=== PATIENT | male | born 1970 | race Caucasian/White ===

== ENCOUNTER 2021-09-01 19:29 | Inpatient (IN) | payer BC, SELFPAY ==
[2021-09-01 19:37] VITALS: BP 193/115; PULSE 68; RESP 16; TEMP 36.7; O2SAT 98
--- NOTE | 2021-09-01 19:42 | CTR_ITS ---
PROCEDURE INFORMATION: Exam: CT Head Without Contrast Exam date and time: 09/01/2021 7:42 PM Age: 51 years old Clinical indication: Pain; Headache not specified; Additional info: Headache blurry vision TECHNIQUE: Imaging protocol: Computed tomography of the head without contrast. Radiation optimization: All CT scans at this facility use at least one of these dose optimization techniques: automated exposure control; mA and/or kV adjustment per patient size (includes targeted exams where dose is matched to clinical indication); or iterative reconstruction. COMPARISON: [place] [facility] [place] [id number] 06/20/2017 9:09 AM RADIATION DOSE METRICS: Total DLP (mGy-cm): 964.37 FINDINGS: Brain: Unremarkable. No hemorrhage. No significant white matter disease. No edema. Cerebral ventricles: No ventriculomegaly. Paranasal sinuses: 8 mm retention cyst left maxillary sinus. Mastoid air cells: Unremarkable as visualized. No mastoid effusion. Bones/joints: Unremarkable. No acute fracture. Soft tissues: Unremarkable. CT/CT head wo con* [id number] IMPRESSION: 1. No acute intracranial abnormality demonstrated. 2. There is no interval change from the prior examination.
--- NOTE | 2021-09-01 19:44 | PC.NURSE ---
states right eye pain with throbbing, states started yesterday and states breathing and movement makes the pain worse. has history of migrains as a child but not as an adult. states decreased vision in right eye but does not appear different with eye open or close. deneis injury or trauma. states started yesterday around 0700 and did not feel right. reports vomiting yesterday and had been taking NSAIDS and tylenol with out relief of pain. PERRL equal in both eyes. states can not tell light or dark even with flashlight in eyes.
--- NOTE | 2021-09-01 20:10 | XRR_ITS ---
PROCEDURE INFORMATION: Exam: XR Chest Exam date and time: 09/01/2021 8:10 PM Age: 51 years old Clinical indication: Shortness of breath; Additional info: SOB TECHNIQUE: Imaging protocol: XR of the chest. Views: 1 view. COMPARISON: No relevant prior studies available. FINDINGS: Lungs: No consolidation. Pleural spaces: No pleural effusion. No pneumothorax. Heart/Mediastinum: No cardiomegaly. Bones/joints: Old healed right clavicle fracture. Degenerative changes of the thoracic spine are noted. XR/XR chest 1V portable [id number] IMPRESSION: No acute abnormality demonstrated.
--- NOTE | 2021-09-01 20:11 | ECG_ITS ---
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 Measurements Intervals [place] Rate: 78 P: 57 NC: 133 QRS: -44 QRSD: 102 T: 47 QT: 362 QTc: 413 Interpretive Statements SINUS RHYTHM POSSIBLE LEFT ATRIAL ENLARGEMENT [-0.1mV P-WAVE IN V1/V2] LEFT AXIS DEVIATION [QRS AXIS < -30] No previous ECG available for comparison Electronically Signed On 09-03-2021 15:39:25 SOCIAL WORK INSTRUCTOR by Rohini Herrmann M.D. [email or web address]/[id number]
--- NOTE | 2021-09-01 20:19 | W.ED.HA ---
Documented by User: Murphy Keith Washington, 09/02/21 03:21 HPI - Headache General: Chief Complaint: Headache Stated Complaint: N/V, weakness Time Seen by Provider: 09/01/21 19:42 History of Present Illness: HPI Narrative: 51-year-old male with history of right eye pain, headache, and vomiting since yesterday. He notes onset of eye pain with blurry vision yesterday. Worsened, but then improved last night. This afternoon it started again, and has been quite debilitating. He notes it is a stabbing pain behind his eye and in his right adventism. He notes spotty vision. He is not overly light sensitive. He has vomited due to the pain. He said the pain is making him short of breath as well. He is quite hypertensive on arrival. He has had intermittent numbness and tingling to both upper and lower extremities bilaterally. No weakness. No head trauma MD elicited complaint: headache Pertinent past history: other Onset (ago): hour(s) Onset description: suddenly Location: right and retro-orbital Quality & Timing: throbbing and other (Staff) Exacerbating factors: none Relieving factors: nothing Context: occurred at rest Associated symptoms: Reports diaphoresis, eye pain, loss of vision (Blurry vision) and short of breath; Deny chest pain, confusion, cough, eye redness, fever(s), lightheadedness, photophobia or sound sensitivity Review of Systems Const: Reports: diaphoresis; Denies: fever(s) Card: Denies: chest pain or lightheadedness Neuro: Denies: confusion Physical Exam Const: COMMON NORMALS: patient oriented x3 and alert GENERAL APPEARANCE: not comfortable HENMT: COMMON NORMALS: normocephalic HEAD & SCALP: normocephalic Eye: COMMON NORMALS: Equal, round and reactive pupils present, EOMs intact bilaterally and conjunctivae normal CONJUNCTIVA: Yes conjunctivae normal PUPIL: Yes Equal, round and reactive pupils present DIRECT OPHTHALMOSCOPY: No photophobia Chest: COMMONS NORMALS: normal inspection of the chest Resp: COMMON NORMALS: clear to auscultation bilaterally EFFORT & INSPECTION: Yes tachypneic AUSCULTATION: clear to auscultation bilaterally Cardio: COMMON NORMALS: regular rate and regular rhythm RATE: regular rate RHYTHM: regular rhythm GI: COMMON NORMALS: Normal to inspection, nondistended, normoactive bowel sounds present Neuro: COMMON NORMALS: patient oriented x3 SENSORIUM/ORIENTATION: Yes alert Course Consultations: Consultation #1: ramona Vital Signs: Vital signs: Vital Signs Temperature 98.0 F 09/01/21 19:37 Pulse Rate 68 09/01/21 19:37 Respiratory Rate 18 09/01/21 21:58 Blood Pressure 193/115 09/01/21 19:37 Pulse Oximetry 98 09/01/21 19:37 MDM - Headache MDM Narrative: Medical decision making narrative: 51-year-old male with significant retrobulbar pain on the right and a change in vision. Its not totally gone, but very blurry. He is not photophobic or light sensitive. Intraocular pressures are checked at bedside. His IOP is 14. Rules out acute angle-closure glaucoma. Head CT was negative. He was treated initially for cluster headache with oxygen, pain medication, Toradol, Reglan, Zofran, and Depacon. Initially he seemed to not improve, but then improved significantly to the point he is nearly asymptomatic. Prior to becoming asymptomatic, MRI was ordered to rule out optic neuritis versus cavernous sinus clot essentially. Interestingly it shows acute lacunar infarcts in the right occipital and parietal lobes. He has had symptoms since yesterday, which makes TPA not an option. His symptoms are improved which is good. CTA was suggested to rule out an unstable clot and a carotid given his right sided stroke findings. CTA of the head and neck are clean. He will be observed for echocardiogram, and continued work-up. He was quite hypertensive on his arrival. His blood pressure has been much improved after antihypertensives here. Hospitalist agrees to observation. He is evaluated in the ER. Lab Data: Labs: Lab Results 09/01/21 09/01/21 09/01/21 20:45 20:45 20:45 WBC 8.2 10^3/uL 10^3/ uL (4.0-10.0) RBC 4.97 10^6/uL 10^6 /uL (4.1-5.3) Hgb 15.4 g/dL g/dL (11.7-16.6) Hct 43.5 % % (42.0-52.0) MCV 87.5 fl fl (80-94) MCH 31.0 pg pg (28.0-34.0) MCHC 35.4 g/dL g/dL (30.0-36.0) RDW 12.9 % % (12.1-15.1) Plt Count 161 10^3/cmm 10^3 /cmm (130-400) MPV 11.6 fL H fL (7.4-10.4) Neut % (Auto) 74.7 % % Lymph % (Auto) 17.5 % % [place] % (Auto) 7.0 % % Eos % (Auto) 0.1 % % Baso % (Auto) 0.2 % % Neut # (Auto) 6.11 10^3/uL 10^3 /uL (1.8-7.7) Lymph # (Auto) 1.4 10^3/uL 10^3/ uL (0.8-4.8) [place] # (Auto) 0.6 10^3/uL 10^3/ uL (0.2-0.9) Eos # (Auto) 0.0 10^3/uL 10^3/ uL (0.0-0.8) Baso # (Auto) 0.0 10^3/uL 10^3/ uL (0.0-0.1) Nucleated RBC % (a uto) 0 % % Nucleated RBCs # 0.0 /100WBC /100W BC Sodium 140 mmol/L mmol/L (136-145) Potassium 4.7 mmol/L mmol/L (3.5-5.1) Chloride 104 mmol/L mmol/L (98-107) Carbon Dioxide 22 mmol/L mmol/L (22-29) Anion Gap 18.7 (5-19) BUN 20 mg/dL mg/dL (6-20) Creatinine 1.0 mg/dL mg/dL (0.7-1.2) GFR Calculation 79.1 mL/min L mL/ min (90-130) Glucose 126 mg/dL H mg/dL (65-115) Calculated Osmolal ity 294 mOsm/kg mOsm/ kg (285-295) Calcium 8.9 mg/dL mg/dL (8.5-10.5) Total Bilirubin 0.4 mg/dL mg/dL (0.15-1.2) AST 27 U/L U/L (0-40) ALT 38 U/L U/L (0-41) Alkaline Phosphata se 97 IU/L IU/L (40-130) Creatine Kinase 120 U/L U/L (39-308) Troponin T Baselin e 7 ng/L ng/L (0-15) Troponin T 120 Min [place] Delta Troponin T Troponin T Hi Sens 6Hr Troponin T Hi Sens 6Hr Delta C-Reactive Protein 4.6 mg/L mg/L (0.0-4.9) Total Protein 7.2 g/dL g/dL (6.6-8.7) Albumin 4.6 g/dL g/dL (3.5-5.2) Globulin 2.6 g/dL g/dL (1.3-4.6) 09/01/21 09/02/21 22:20 02:17 WBC RBC Hgb Hct MCV MCH MCHC RDW Plt Count MPV Neut % (Auto) Lymph % (Auto) [place] % (Auto) Eos % (Auto) Baso % (Auto) Neut # (Auto) Lymph # (Auto) [place] # (Auto) Eos # (Auto) Baso # (Auto) Nucleated RBC % (a uto) Nucleated RBCs # Sodium Potassium Chloride Carbon Dioxide Anion Gap BUN Creatinine GFR Calculation Glucose Calculated Osmolal ity Calcium Total Bilirubin AST ALT Alkaline Phosphata se Creatine Kinase Troponin T Baselin e Troponin T 120 Min [place] 6.31 ng/L ng/L (0-15) Delta Troponin T -0.69 ABS# L ABS# (0-10) Troponin T Hi Sens 6Hr 7.81 ng/L ng/L (0-15) Troponin T Hi Sens 6Hr Delta 0.81 ng/L ng/L (0-12) C-Reactive Protein Total Protein Albumin Globulin Discharge Plan Discharge Patient Disposition: Placed in Observation Clinical Impression: Acute cerebrovascular accident (CVA) Coding Level of Care Code ED Salt Operator for Chg Fwd Exam Detailed Documented by User: Cori Nur MD 09/02/21 01:36 HPI - Headache General: Chief Complaint: Headache Stated Complaint: N/V, weakness Time Seen by Provider: 09/01/21 19:42 Course Vital Signs: Vital signs: Vital Signs Temperature 98.0 F 09/01/21 19:37 Pulse Rate 68 09/01/21 19:37 Respiratory Rate 18 09/01/21 21:58 Blood Pressure 193/115 09/01/21 19:37 Pulse Oximetry 98 09/01/21 19:37 MDM - Headache Lab Data: Labs: Lab Results 09/01/21 09/01/21 09/01/21 20:45 20:45 20:45 WBC 8.2 10^3/uL 10^3/ uL (4.0-10.0) RBC 4.97 10^6/uL 10^6 /uL (4.1-5.3) Hgb 15.4 g/dL g/dL (11.7-16.6) Hct 43.5 % % (42.0-52.0) MCV 87.5 fl fl (80-94) MCH 31.0 pg pg (28.0-34.0) MCHC 35.4 g/dL g/dL (30.0-36.0) RDW 12.9 % % (12.1-15.1) Plt Count 161 10^3/cmm 10^3 /cmm (130-400) MPV 11.6 fL H fL (7.4-10.4) Neut % (Auto) 74.7 % % Lymph % (Auto) 17.5 % % [place] % (Auto) 7.0 % % Eos % (Auto) 0.1 % % Baso % (Auto) 0.2 % % Neut # (Auto) 6.11 10^3/uL 10^3 /uL (1.8-7.7) Lymph # (Auto) 1.4 10^3/uL 10^3/ uL (0.8-4.8) [place] # (Auto) 0.6 10^3/uL 10^3/ uL (0.2-0.9) Eos # (Auto) 0.0 10^3/uL 10^3/ uL (0.0-0.8) Baso # (Auto) 0.0 10^3/uL 10^3/ uL (0.0-0.1) Nucleated RBC % (a uto) 0 % % Nucleated RBCs # 0.0 /100WBC /100W BC Sodium 140 mmol/L mmol/L (136-145) Potassium 4.7 mmol/L mmol/L (3.5-5.1) Chloride 104 mmol/L mmol/L (98-107) Carbon Dioxide 22 mmol/L mmol/L (22-29) Anion Gap 18.7 (5-19) BUN 20 mg/dL mg/dL (6-20) Creatinine 1.0 mg/dL mg/dL (0.7-1.2) GFR Calculation 79.1 mL/min L mL/ min (90-130) Glucose 126 mg/dL H mg/dL (65-115) Calculated Osmolal ity 294 mOsm/kg mOsm/ kg (285-295) Calcium 8.9 mg/dL mg/dL (8.5-10.5) Total Bilirubin 0.4 mg/dL mg/dL (0.15-1.2) AST 27 U/L U/L (0-40) ALT 38 U/L U/L (0-41) Alkaline Phosphata se 97 IU/L IU/L (40-130) Creatine Kinase 120 U/L U/L (39-308) Troponin T Baselin e 7 ng/L ng/L (0-15) Troponin T 120 Min [place] Delta Troponin T Troponin T Hi Sens 6Hr Troponin T Hi Sens 6Hr Delta C-Reactive Protein 4.6 mg/L mg/L (0.0-4.9) Total Protein 7.2 g/dL g/dL (6.6-8.7) Albumin 4.6 g/dL g/dL (3.5-5.2) Globulin 2.6 g/dL g/dL (1.3-4.6) 09/01/21 09/02/21 22:20 02:17 WBC RBC Hgb Hct MCV MCH MCHC RDW Plt Count MPV Neut % (Auto) Lymph % (Auto) [place] % (Auto) Eos % (Auto) Baso % (Auto) Neut # (Auto) Lymph # (Auto) [place] # (Auto) Eos # (Auto) Baso # (Auto) Nucleated RBC % (a uto) Nucleated RBCs # Sodium Potassium Chloride Carbon Dioxide Anion Gap BUN Creatinine GFR Calculation Glucose Calculated Osmolal ity Calcium Total Bilirubin AST ALT Alkaline Phosphata se Creatine Kinase Troponin T Baselin e Troponin T 120 Min [place] 6.31 ng/L ng/L (0-15) Delta Troponin T -0.69 ABS# L ABS# (0-10) Troponin T Hi Sens 6Hr 7.81 ng/L ng/L (0-15) Troponin T Hi Sens 6Hr Delta 0.81 ng/L ng/L (0-12) C-Reactive Protein Total Protein Albumin Globulin Discharge Plan Discharge Patient Disposition: Placed in Observation Clinical Impression: Acute cerebrovascular accident (CVA) Coding Level of Care Code ED Salt Operator for Gretchen Fwd Exam Detailed
[2021-09-01 20:27] VITALS: RESP 18
[2021-09-01] MEDS: HYDROmorphone 1 mg/mL INJ 1 mL IVP (20:27)
[2021-09-01] MEDS: ondansetron 2 mg/ML SDV 2 mL 4 MG IVP (20:28)
[2021-09-01] MEDS: tetracaine 0.5% Op Soln 4 mL Btl 1 DROP EYE-RIGHT (20:28)
[2021-09-01] MEDS: metoclopramide 5 mg/mL SDV 2 mL 10 MG IVP (20:55)
[2021-09-01] MEDS: enalaprilat 1.25 mg/mL Inj IVP (20:56)
[2021-09-01] MEDS: labetalol 5 mg/mL SDV 20mL 20 MG IVP (20:57)
[2021-09-01] MEDS: valproic acid inj 500 MG in sodium chloride 0.9% 50 ML 55 MG IV (20:59)
[2021-09-01 21:00] LABS: Basophils % 0.2 %; Eosinophils % 0.1 %; Hematocrit 43.5 % (42.0-52.0); Hemoglobin 15.4 g/dL (11.7-16.6); Lymphocytes # 1.4 10^3/uL (0.8-4.8); Lymphocytes % 17.5 %; Mean Corpuscular HGB Conc 35.4 g/dL (30.0-36.0); Mean Corpuscular Volume 87.5 fl (80-94); Mean Platelet Volume 11.6 fL (7.4-10.4); Monocytes # 0.6 10^3/uL (0.2-0.9); Neutrophils # 6.11 10^3/uL (1.8-7.7); Neutrophils % 74.7 %; Nucleated Red Blood Cells % 0 %; Platelet Count 161 10^3/cmm (130-400); Red Blood Count 4.97 10^6/uL (4.1-5.3); Red Cell Distribution Width 12.9 % (12.1-15.1); White Blood Count 8.2 10^3/uL (4.0-10.0)
[2021-09-01] MEDS: amlodipine 10 mg Tablet PO (21:02)
[2021-09-01 21:12] LABS: Troponin(5th) Baseline 7 ng/L (0-15)
[2021-09-01 21:22] LABS: Albumin Level 4.6 g/dL (3.5-5.2); Alkaline Phosphatase 97 IU/L (40-130); Blood Urea Nitrogen 20 mg/dL (6-20); C Reactive Protein 4.6 mg/L (0.0-4.9); Calcium 8.9 mg/dL (8.5-10.5); Carbon Dioxide 22 mmol/L (22-29); Chloride 104 mmol/L (98-107); Globulin 2.6 g/dL (1.3-4.6); Glomerular Filtration Rate 79.1 mL/min (90-130); Glucose 126 mg/dL (65-115); Osmolality Calculated 294 mOsm/kg (285-295); Sodium 140 mmol/L (136-145); Total Bilirubin 0.4 mg/dL (0.15-1.2); Total Protein 7.2 g/dL (6.6-8.7)
[2021-09-01 21:31] LABS: Alanine Aminotransferase 38 U/L (0-41); Anion Gap 18.7 (5-19); Aspartate Amino Transferase 27 U/L (0-40); Creatine Phosphokinase 120 U/L (39-308); Potassium 4.7 mmol/L (3.5-5.1)
[2021-09-01 21:58] VITALS: RESP 18
[2021-09-01] MEDS: fentaNYL 50 mcg/mL INJ 2mL 100 MCG IVP (21:58)
[2021-09-01] MEDS: ketorolac 30 mg/mL INJ 15 MG IVP (21:58)
--- NOTE | 2021-09-01 22:11 | ECG_ITS ---
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 Measurements Intervals [place] Rate: 82 P: 58 RI: 135 QRS: -40 QRSD: 106 T: 49 QT: 364 QTc: 426 Interpretive Statements SINUS RHYTHM LEFT AXIS DEVIATION [QRS AXIS < -30] Compared to ECG 09/01/2021 20:28:27 No significant changes Electronically Signed On 09-03-2021 16:59:47 SLIVER CHOPPER by Rohini Herrmann M.D. [id number]
[2021-09-01 22:49] LABS: Troponin 5 2HR 6.31 ng/L (0-15)
[2021-09-01 22:51] LABS: Troponin 5 2HR Delta -0.69 ABS# (0-10)
--- NOTE | 2021-09-01 22:55 | MRR_ITS ---
PROCEDURE INFORMATION: Exam: MR Head Without Contrast Exam date and time: 09/01/2021 10:55 PM Age: 51 years old Clinical indication: Pain; Headache; Additional info: R eye vision loss, R sided headache TECHNIQUE: Imaging protocol: MR of the head without contrast. COMPARISON: CT head wo con* [id number] 09/01/2021 7:52 PM FINDINGS: Brain: There are punctate foci of restricted diffusion demonstrated in the right occipital cortex measuring up to 3 mm in diameter, consistent with acute punctate/lacunar infarcts. Additional punctate foci of restricted diffusion are seen in the right parietal lobe near the cerebral convexity, series 7, image 22 and image 21. No intracranial hemorrhage noted. No hemosiderin deposition noted. No abnormal enhancement of the brain parenchyma. Cerebral ventricles: Unremarkable. No ventriculomegaly. Pituitary gland and sella: Pituitary gland is prominent, measuring 9 mm craniocaudal x 12 mm transverse x 14 mm AP. T2 coronal images demonstrate slight leftward deviation of the infundibulum. The possibility of a pituitary lesion such as micro/macroadenoma is raised. No evidence of pituitary hemorrhage. Bones/joints: Unremarkable. Paranasal sinuses: 10 mm retention cyst left maxillary sinus. The paranasal sinuses are otherwise unremarkable. Mastoid air cells: No mastoid effusion. Orbital cavity: Unremarkable. Soft tissues: Unremarkable. MR/MR head wo/w con [id number] IMPRESSION: 1. Multiple acute lacunar infarcts are demonstrated in the left occipital cortex. There are 2 additional acute lacunar infarcts in the right parietal cortex. No associated intracranial hemorrhage. 2. The pituitary gland is prominent, measuring 9 mm craniocaudal x 12 mm transverse x 14 mm AP. Mild deviation of the infundibulum. The possibility of a pituitary lesion such as micro/macroadenoma is raised. No evidence of pituitary hemorrhage. Consider follow-up nonemergent MRI of the pituitary/sella for further assessment.
--- NOTE | 2021-09-02 01:30 | CTR_ITS ---
PROCEDURE INFORMATION: Exam: CT Angiography Head With Contrast, Arteriography Exam date and time: 09/02/2021 1:30 AM Age: 51 years old Clinical indication: Headache; Additional info: CVA TECHNIQUE: Imaging protocol: Computed tomography angiography of the head with contrast. Exam focused on the arteries. 3D rendering (Not supervised by radiologist): MIP and/or 3D reconstructed images were created by the technologist. Radiation optimization: All CT scans at this facility use at least one of these dose optimization techniques: automated exposure control; mA and/or kV adjustment per patient size (includes targeted exams where dose is matched to clinical indication); or iterative reconstruction. Contrast material: OMNI 350; Contrast volume: 95 ml; Contrast route: INTRAVENOUS (IV); COMPARISON: MR head wo/w con [id number] 09/01/2021 11:48 PM RADIATION DOSE METRICS: Total DLP (mGy-cm): 2764 FINDINGS: ANTERIOR CIRCULATION: Right internal carotid artery: Unremarkable. Intracranial segment is patent with no significant stenosis. No aneurysm. Right middle cerebral artery: Unremarkable. No occlusion or significant stenosis. No aneurysm. Right anterior cerebral artery: Unremarkable. No occlusion or significant stenosis. No aneurysm. Left internal carotid artery: Unremarkable. Intracranial segment is patent with no significant stenosis. No aneurysm. Left middle cerebral artery: Unremarkable. No occlusion or significant stenosis. No aneurysm. Left anterior cerebral artery: Unremarkable. No occlusion or significant stenosis. No aneurysm. POSTERIOR CIRCULATION: Right vertebral artery: Unremarkable. No occlusion or significant stenosis. No aneurysm. Left vertebral artery: Unremarkable. No occlusion or significant stenosis. No aneurysm. Basilar artery: Unremarkable. No occlusion or significant stenosis. No aneurysm. Right posterior cerebral artery: Unremarkable. No occlusion or significant stenosis. No aneurysm. Left posterior cerebral artery: Unremarkable. No occlusion or significant stenosis. No aneurysm. Brain: No definite mass, mass effect, or midline shift. Cerebral ventricles: No ventriculomegaly. Bones/joints: Unremarkable. No acute fracture. Soft tissues: Unremarkable. PROCEDURE INFORMATION: Exam: CT Angiography Neck With Contrast Exam date and time: 09/02/2021 1:30 AM Age: 51 years old Clinical indication: Headache; Additional info: CVA TECHNIQUE: Imaging protocol: Computed tomography angiography of the neck with contrast. 3D rendering (Not supervised by radiologist): MIP and/or 3D reconstructed images were created by the technologist. Radiation optimization: All CT scans at this facility use at least one of these dose optimization techniques: automated exposure control; mA and/or kV adjustment per patient size (includes targeted exams where dose is matched to clinical indication); or iterative reconstruction. Contrast material: OMNI 350; Contrast volume: 95 ml; Contrast route: INTRAVENOUS (IV); COMPARISON: MR head wo/w con [id number] 09/01/2021 11:48 PM RADIATION DOSE METRICS: Total DLP (mGy-cm): 2764 FINDINGS: Right common carotid artery: No stenosis. No dissection or occlusion. Right internal carotid artery: Calcific plaques are seen within the carotid bulb posteriorly. No stenosis of the extracranial segment. No dissection or occlusion. Right external carotid artery: No occlusion or stenosis of the origin. Left common carotid artery: No stenosis. No dissection or occlusion. Left internal carotid artery: Calcifications are seen within the carotid bulb posteriorly. No stenosis of the extracranial segment. No dissection or occlusion. Left external carotid artery: No occlusion or stenosis of the origin. Right vertebral artery: No stenosis. No dissection or occlusion. Left vertebral artery: No stenosis. No dissection or occlusion. Soft tissues: Normal. No significant soft tissue swelling. Bones/joints: No acute fracture. CT/CT angio headneck* [id number] IMPRESSION: No large vessel stenosis or occlusion. IMPRESSION: No stenosis or occlusion. REFERENCES: NASCET CRITERIA. The degree of internal carotid artery stenosis is based on NASCET criteria. Normal is no stenosis. Mild is less than 50% stenosis. Moderate is 50-69% stenosis. Severe is 70% to 99% stenosis. Total occlusion is no detectable patent lumen.
[2021-09-02] MEDS: iohexol 350 mg/mL 100 mL Btl IV (01:49)
--- NOTE | 2021-09-02 02:11 | ECG_ITS ---
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 Measurements Intervals [place] Rate: 78 P: 54 RI: 148 QRS: -23 QRSD: 102 T: 27 QT: 375 QTc: 429 Interpretive Statements SINUS RHYTHM BORDERLINE LEFT AXIS DEVIATION [QRS AXIS < -20] NONSPECIFIC T-WAVE ABNORMALITY Compared to ECG 09/01/2021 22:58:23 T-wave abnormality now present Electronically Signed On 09-03-2021 16:58:51 AIRCRAFT SEAT UPHOLSTERER by Rohini Herrmann M.D. [email or web address]/[id number]
--- NOTE | 2021-09-02 02:54 | PM.HP ---
Providers/Chief Complaint Primary Care Provider: Shukri Palmer MD Chief Complaint: N/V, weakness History of Present Illness 51 year old male with past medical history significant for hypothyroidism and hyperlipidemia who presented to ER with right sided visual changes. Patient noted initial episode on 08/31 at 10;30 am which lasted until around 3 pm. Noted patchy area of visual field deficit followed by sharp right sided headache. Described this as ?knife like pain behind right eye?. Denied pain with eye movement, redness or tearing. Took Tylenol which help relieved pain. Today around 6 pm again noted similar episode after which he presented to ER. Of note he did not have any additional weakness. Upon arrival his symptoms had resolved after pain medication. Did no thave any complaint of visual changes at the time of my eval. Denied any prior history of migraines or strokes. Denied cheat pain however did note dyspnea on exertion. No orthopnea. Lab work up did not show any abnormalities. ER Meds: Valproic Acid 500 mg IV x1 Norvasc 10 mg PO x1 Enalaprilat 1.25 mg IV x1 Lebetalol 20 mg IV x1 Reglan 10 mg IV x1 Zofran 4 mg IV x1 [place] 15 mg IV x1 Fentanyl 100 mcg IV x 1 Dilaudid 1 mg IV x 1 Tetracaine0.5% op x1 Imaging: MRI brain with/without contrast 1. Multiple acute lacunar infarcts are demonstrated in the left occipital cortex. There are 2 additional acute lacunar infarcts in the right parietal cortex. No associated intracranial hemorrhage. 2. The pituitary gland is prominent, measuring 9 mm craniocaudal x 12 mm transverse x 14 mm AP. Mild deviation of the infundibulum. The possibility of a pituitary lesion such as micro/macroadenoma is raised. No evidence of pituitary hemorrhage. Consider follow-up nonemergent MRI of the pituitary/sella for further assessment. CTA head and neck No stenosis or occlusion. CT head without contrast 1. No acute intracranial abnormality demonstrated. 2. There is no interval change from the prior examination. Chest xray; No acute abnormality Review of Systems General: Reports: 10 or more systems reviewed and unremarkable except in HPI and below Medications/Allergies Home Medications Medication Instructions Recorded Confirmed Last Taken Type atorvastatin 20 mg PO DAILY 09/02/21 09/02/21 08/31/21 07:00 History escitalopram oxalate 20 mg PO DAILY 09/02/21 09/02/21 08/31/21 08:00 History levothyroxine 137 mcg PO DAILY 09/02/21 09/02/21 08/31/21 07:00 History Allergies Allergy/AdvReac Type Severity Reaction Status Date / Time No Known Allergies Allergy Verified 09/01/21 19:39 PFSH Acute PFSH: Medical History (Updated 09/02/21 @ 04:28 by Cori Nur MD) Hyperlipidemia Hypertension No pertinent family history Surgical History (Updated 09/02/21 @ 04:26 by Cori Nur MD) History of orthopedic surgery Social History (Updated 09/02/21 @ 04:27 by Cori Nur MD) Smoking and tobacco status: never smoked Alcohol intake: current Alcohol use comment: 12 beers per week Substance/Drug Use: never Vitals/I&O/Wt Last Vital Signs Temp 98.0 F 09/01/21 19:37 Pulse 68 09/01/21 19:37 Resp 18 09/01/21 21:58 BP 193/115 09/01/21 19:37 Pulse Ox 98 09/01/21 19:37 Weight last 48 hrs Weight 117.934 kg Physical Exam Narrative: EXAM NARRATIVE: GENERAL APPEARANCE: Well developed, well nourished, alert and cooperative, and appears to be in no acute distress. HEENT: Grossly unremarkable. No injection, EOMI, no visual field deficits CVS; Regular rate and rhythm Chest; CTABL Abd; Soft, NT, ND Ext; No edema Neuro: CN2-12 intact, MS -5/5, no sensory deficits. Data : 09/01/21 20:45 09/01/21 20:45 A&P Assessment and plan (1) Acute cerebrovascular accident (CVA): Status: Acute (2) Hypertension: Status: Acute (3) Hyperlipidemia: Status: Acute (4) Pituitary gland enlarged: Status: Acute Additional A&P Information Acute CVA Noted visual changes - NIH-0 at time of my eval Head CT -negative CTA H&N - negative MRI Brain w/wo contrast - multiple lacunar infarcts in L.occibipal cortex Additional acute lacunar infarcts in right parietal cortex No TPA as sx resolved Allow for permissive HTN - tx if SBP>220 or DBP > 120 Aspirin 325 mg PO daily Lipitor 80 mg PO Qhs ECHO ordered with bubble study NPO until swallow study Lipid panel / A1c in am Will ricardoler need event monitor at discharge. - possible occult afib Monitor on telemetry PT/OT/ST consult Continue neuro-checks. Pituitary Gland Enlargement Incidenlty noted on MRi 9mm x 12 mm x 14 mm. With deviation of infundibulum Consider MRI of pituitary/sella prior to discharge. Hypertension / Hyperlipidemia Mgmt as noted above Hypothyroidism Levothyroxine 137mcg PO daily DVT ppx Lovenox 40 mg SQ daily Attestations Medical Necessity Statement*: anticipate over 2 midnights stay in hospital for evaluation and treatment Time Spent in Patient Care: Greater than 35 minutes (>than 50% of time spent in counselling and/or direct pt care on unit). Coding Level of Care Code Acute Larry Operator for Gretchen Morrell Diagnoses Acute cerebrovascular accident (CVA) I63.9 Hypertension I10 Hyperlipidemia E78.5 Pituitary gland enlarged E23.6
[2021-09-02 03:08] LABS: Troponin 5 6HR 7.81 ng/L (0-15); Troponin 5 6HR Delta 0.81 ng/L (0-12)
[2021-09-02 03:39] VITALS: BP 154/78; PULSE 68; RESP 18; TEMP 36.8; O2SAT 98
[2021-09-02 04:00] VITALS: BP 143/88; PULSE 79; RESP 18; TEMP 37; O2SAT 96
[2021-09-02 04:29] VITALS: BMI 36.5
[2021-09-02] MEDS: aspirin 325 mg Tablet PO (06:32)
[2021-09-02 06:57] LABS: Alanine Aminotransferase 31 U/L (0-41); Albumin Level 4.1 g/dL (3.5-5.2); Alkaline Phosphatase 92 IU/L (40-130); Aspartate Amino Transferase 17 U/L (0-40); Blood Urea Nitrogen 19 mg/dL (6-20); Calcium 8.8 mg/dL (8.5-10.5); Carbon Dioxide 24 mmol/L (22-29); Chloride 103 mmol/L (98-107); Chol HDL Ratio 4.66 mg/dL (1.0-5.00); Cholesterol 191 mg/dL (0-200); Globulin 2.5 g/dL (1.3-4.6); Glomerular Filtration Rate 70.9 mL/min (90-130); Glucose 109 mg/dL (65-115); HDL Cholesterol 41 mg/dL (60-100); LDL Cholesterol Calculated 106 mg/dL (50-129); LDL HDL Ratio 2.59 RATIO (0.00-3.22); Osmolality Calculated 289 mOsm/kg (285-295); Sodium 138 mmol/L (136-145); Total Bilirubin 0.3 mg/dL (0.15-1.2); Total Protein 6.6 g/dL (6.6-8.7); Triglycerides 220 mg/dL (0-150)
[2021-09-02 07:00] LABS: Anion Gap 14.6 (5-19); Potassium 3.6 mmol/L (3.5-5.1)
[2021-09-02 07:01] LABS: Estmated Average Glucose 108; Hemoglobin A1C 5.4 % (4.0-6.0)
[2021-09-02 08:00] VITALS: BP 130/84; PULSE 68; RESP 18; TEMP 36.7; O2SAT 96
[2021-09-02] MEDS: enoxaparin 40 mg/0.4 mL Syringe SUBCUT (09:48)
[2021-09-02 12:00] VITALS: BP 116/76; PULSE 71; RESP 16; TEMP 36.6; O2SAT 96
--- NOTE | 2021-09-02 14:22 | EV_ITS ---
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 Interpretive Statements Event monitor findings Period 09/12/2021 to 10/02/2021 Total events recorded 3 Manual 1 Auto triggered---------2 Monitored time: Diagnostic 83% Artifact 4 % No data 13% The baseline rhythm was normal sinus rhythm with a heart rate of 81 bpm. Atrial fibrillation-----less than 1% for 1 minute. Normal sinus rhythm --- 88% Sinus tachycardia-------- 10% Sinus bradycardia-------- 2 % Symptoms mentioned with the recording----no symptoms are mentioned Arrhythmias recorded with the monitoring--an episode of atrial fibrillation with rapid ventricular rate lasting for a minute, rate of 140 bpm. An 8 beat run of nonsustained ventricular tachycardia, asymptomatic. Ventricular ectopics accounted for less than 1% of the total heart beats, 1637 Supraventricular ectopics comprised less than 1% of the total heart beats, 255 Bradycardic events -no significant bradycardic events Minimum heart rate recorded sinus bradycardia with a heart rate of 55 Tachycardic events showed episode of atrial fibrillation and nonsustained ventricular tachycardia as mentioned above Maximum heart rate recorded sinus tachycardia with a rate of 155 Conclusion: 1. The baseline rhythm was found to be normal sinus with an overall average heart rate of 80 bpm . rare ventricular and supraventricular ectopics. 1 short run of atrial fibrillation lasting for a minute and an 8 beat run of nonsustained ventricular tachycardia were noted and was found to be asymptomatic 2. No significant pauses. No symptoms are mentioned 3. 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 [email or web address]
--- NOTE | 2021-09-02 14:22 | USCV_ITS ---
Darin Mederos Age: 51 Gender: M : 1970 Exam Date: 09/02/2021 15:13 Ordering Phys: Rashida Bates MD Technologist: Carrie Rivera Exam Location: [facility] [place] Indication: MULTIPLE CVA BP: 146 / 83 HR: 69 Rhythm: Sinus Technical Quality: Adequate MEASUREMENTS (Male / Female) Normal Values 2D ECHO LV Diastolic Diameter PLAX 5.5 cm 4.2 - 5.9 / 3.9 - 5.3 cm LV Systolic Diameter PLAX 4.1 cm LV Chamber Size 3.6 cm IVS Diastolic Thickness 1.0 cm 0.6 - 1.0 / 0.6 - 0.9 cm IVS Systolic Thickness 1.3 cm LVPW Diastolic Thickness 1.4 cm 0.6 - 1.0 / 0.6 - 0.9 cm LVPW Systolic Thickness 2.1 cm RV Chamber Size 3.2 cm LVOT Diameter 2.0 cm LV Ejection Fraction 2D Teich 48.8 % LV Ejection Fraction MOD 2C 56.6 % LV Ejection Fraction 2C AL 55.9 % LA Diameter 4.0 cm LA Width 3.4 cm LA Height 4.2 cm RA Width 2.9 cm RA Height 4.2 cm Aorta at Sinotubular Diameter 3.4 cm M-MODE Aortic Annulus Diameter 3.7 cm LA Ao Ratio MM 1.3 MV E Point Septal Separation 0.3 cm DOPPLER AV Peak Velocity 160.0 cm/s LVOT Peak Velocity 119.0 cm/s AV Area Cont Eq vti 2.5 cm squared AV Area Cont Eq pk 2.4 cm squared MV Area PHT 3.9 cm squared Mitral E to A Ratio 1.6 MV E' Velocity 57.5 cm/s Mitral E to MV E' Ratio 12.5 Mitral E to LV E' Lateral Ratio 12.1 Mitral E to LV E' Septal Ratio 13.0 TR Peak Velocity 172.0 cm/s TR Peak Gradient 11.8 mmHg TR Mean Velocity 130.5 cm/s TR Mean Gradient 7.6 mmHg TR Velocity Time Integral 40.2 cm TV Peak E Velocity 73.0 cm/s Right Atrial Pressure 3.0 mmHg Pulmonary Artery Systolic Pressu 14.8 mmHg PV Peak Velocity 97.0 cm/s RV Acceleration Time 0.2 s RV Ejection Time 0.4 s RV AcT/ET 0.4 FINDINGS Left Ventricle Normal left ventricular size, systolic function and wall thickness, with no regional wall motion abnormalities. Left ventricular ejection fraction is estimated at 65 %. Normal diastolic function. Right Ventricle Normal right ventricular size and systolic function. Right ventricular systolic pressure 14.8 mmHg. Right Atrium Normal right atrial size. Right atrial pressure estimated at 3 mmHg. No evidence of intracardiac shunt by agitated saline (bubble) study. Left Atrium Normal left atrial size. Mitral Valve Structurally normal mitral valve. No mitral valve stenosis. Trace mitral valve regurgitation. Aortic Valve Aortic valve not well visualized. No aortic valve stenosis. No aortic valve regurgitation. Tricuspid Valve Structurally normal tricuspid valve. Trace tricuspid valve regurgitation. Pulmonic Valve Pulmonic valve not well visualized. No pulmonary valve stenosis. No pulmonary valve regurgitation. Pericardium No pericardial effusion. Aorta Normal-sized aortic root. Normal size inferior vena cava. CONCLUSIONS 1. Normal left ventricular size, systolic function and wall thickness, with no regional wall motion abnormalities. Left ventricular ejection fraction is estimated at 65 %. Normal diastolic function. 2. No evidence of intracardiac shunt by agitated saline (bubble) study. 3. Normal pulmonary artery pressure. 4. No prior similar studies to compare. Rohini Herrmann MD (Electronically Signed) Final Date: 03 September 2021 12:29 S
--- NOTE | 2021-09-02 14:25 | USR_ITS ---
PROCEDURE INFORMATION: Exam: US Duplex Lower Extremity Veins, Bilateral Exam date and time: 09/02/2021 2:25 PM Age: 51 years old Clinical indication: Other: Dvt; Additional info: Rule out dvt TECHNIQUE: Imaging protocol: Real-time duplex ultrasound of the extremities with 2-D alonzo scale, color Doppler flow and spectral waveform analysis with image documentation. Complete exam focused on the bilateral lower extremity veins. COMPARISON: No relevant prior studies available. FINDINGS: Right deep veins: Unremarkable. The common femoral, femoral, proximal profunda femoral and popliteal veins are patent without thrombus. Normal Doppler waveforms. Normal compressibility and/or augmentation response. Right superficial veins: Saphenofemoral junction is patent without thrombus. Left deep veins: Unremarkable. The common femoral, femoral, proximal profunda femoral and popliteal veins are patent without thrombus. Normal Doppler waveforms. Normal compressibility and/or augmentation response. Left superficial veins: Saphenofemoral junction is patent without thrombus. Soft tissues: Unremarkable. US/[place] [id number] IMPRESSION: No evidence of deep vein thrombosis.
[2021-09-02 16:00] VITALS: BP 141/83; PULSE 68; RESP 18; TEMP 36.7; O2SAT 97
--- NOTE | 2021-09-02 16:32 | PM.MISC ---
Miscellaneous Note Purpose of Documentation: Seen this morning with at bedside. Patient has no neurologic deficits at this time. His eye pain is also resolved. MRI results were discussed with the patient. Patient is willing to stay to have his work-up completed. Echocardiogram is pending with bubble study, venous Dopplers are pending, MRI pituitary gland is also pending at this point. Patient will require an event monitor at discharge to rule out occult A. fib. Patient and in agreement. He does state he has a history of hypertension and he was on medication but he was taken off later on since his blood pressure was well controlled. During the episode of eye pain his blood pressure was 170/120 as per the . Neuro exam completed and completely unremarkable. He has no deficits at this time. Cranial nerves intact. Gait normal. No word finding difficulty. reports his mental status is completely normal and she has not noticed anything out of the ordinary. Plan same as history physical document as documented. I will wait for all his work-up to come back. Patient will need neurology follow-up as an outpatient.
[2021-09-02 19:11] LABS: Amphetamines Screen Urine Negative (Negative); Barbiturates Screen Urine Negative (Negative); Benzodiazepines Screen Urine Negative (Negative); Cocaine Screen Urine Negative (Negative); Opiate Screen Urine Negative (Negative); PCP Screen Urine Negative (Negative); THC Screen Urine Negative (Negative)
[2021-09-02 19:51] VITALS: BP 146/89; PULSE 67; RESP 17; TEMP 36.4; O2SAT 96
[2021-09-02] MEDS: atorvastatin 40 mg Tablet 80 MG PO (21:03)
[2021-09-03] VITALS: BP 106/66; PULSE 61; RESP 17; TEMP 36.6; O2SAT 95
[2021-09-03 04:00] VITALS: BP 119/81; PULSE 66; RESP 17; TEMP 36.9; O2SAT 95
[2021-09-03 06:26] LABS: Basophils # 0.1 10^3/uL (0.0-0.1); Basophils % 0.7 %; Eosinophils # 0.2 10^3/uL (0.0-0.8); Eosinophils % 2.4 %; Hematocrit 42.8 % (42.0-52.0); Hemoglobin 15.1 g/dL (11.7-16.6); Lymphocytes # 2.4 10^3/uL (0.8-4.8); Lymphocytes % 32.7 %; Mean Corpuscular HGB Conc 35.3 g/dL (30.0-36.0); Mean Corpuscular Hemoglobin 31.6 pg (28.0-34.0); Mean Corpuscular Volume 89.5 fl (80-94); Mean Platelet Volume 11.8 fL (7.4-10.4); Monocytes # 0.9 10^3/uL (0.2-0.9); Monocytes % 11.6 %; Neutrophils # 3.87 10^3/uL (1.8-7.7); Neutrophils % 52.2 %; Nucleated Red Blood Cells % 0 %; Platelet Count 148 10^3/cmm (130-400); Red Blood Count 4.78 10^6/uL (4.1-5.3); Red Cell Distribution Width 13.2 % (12.1-15.1); White Blood Count 7.4 10^3/uL (4.0-10.0)
[2021-09-03 06:50] LABS: Anion Gap 14.3 (5-19); Blood Urea Nitrogen 12 mg/dL (6-20); Calcium 8.6 mg/dL (8.5-10.5); Carbon Dioxide 26 mmol/L (22-29); Chloride 105 mmol/L (98-107); Chol HDL Ratio 4.58 mg/dL (1.0-5.00); Cholesterol 183 mg/dL (0-200); Glomerular Filtration Rate 102.3 mL/min (90-130); Glucose 96 mg/dL (65-115); HDL Cholesterol 40 mg/dL (60-100); LDL Cholesterol Calculated 100 mg/dL (50-129); Magnesium 2.1 mg/dL (1.7-2.3); Osmolality Calculated 292 mOsm/kg (285-295); Potassium 4.3 mmol/L (3.5-5.1); Sodium 141 mmol/L (136-145); Triglycerides 214 mg/dL (0-150)
[2021-09-03 07:01] LABS: Estmated Average Glucose 108; Hemoglobin A1C 5.4 % (4.0-6.0)
[2021-09-03 07:10] VITALS: BP 141/90; PULSE 60; RESP 16; TEMP 37; O2SAT 93
--- NOTE | 2021-09-03 10:00 | MR_ITS ---
WS: [id number] MRI HEAD WITHOUT AND WITH CONTRAST WITH ATTENTION TO THE PITUITARY. TECHNIQUE: Axial FLAIR, axial diffusion weighted images, and coronal T2 images were obtained. Pre and post-T1 axial and post T1 coronal images. ADC and FSPGR images. Pre and post gadolinium images with attention to the pituitary. High-resolution coronal and sagittal T2 imaging. CLINICAL INFORMATION: rule out adenoma, deviated infundibulum COMPARISON: MRI September 01, 2021 FINDINGS: Again seen are a few tiny foci of restricted diffusion consistent with small acute lacunar infarcts i n the right parietal and occipital lobes unchanged from previous. Minimal white matter changes. Mild parenchymal volume loss. Mild mucosal thickening in the mastoid ti ps. Paranasal sinuses are well aerated. Tiny retention cyst left maxillary sinus. Normal optic chiasm. Leftward displacement of the pituitary infundibulum. Heterogeneous enhancing T2 hyperintense intrasellar lesion most compatible with pituitary macroadenoma eccentric to the right in the sella. This measures approximately 11.2 x 13.6 x 10.0 mm AP by transverse by craniocaudal. Mild suprasellar extension. No impingement on the chiasm. Enhancing adenoma tissue extends about the right cavernous sinus. MR/MR pituitary wo/w con* [id number] IMPRESSION: 1. 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 This measures approximately 11.2 x 13.6 x 10.0 mm AP by transverse by craniocaudal. Mild suprasellar extension. Recommend neurosu rgery consultation. 2. Leftward displacement of the pituitary infundibulum. No impingement on the optic chiasm. Enhancing adenoma tissue extends about the right cavernous sinus. 3. Stable tiny foci of restricted diffusion consistent with small acute lacuna r infarcts in the right parietal and occipital lobes unchanged from previous.
--- NOTE | 2021-09-03 10:39 | PC.CHAP ---
Pastoral Care Encounter/Spiritual Assessment Type of Contact [] Declined media consultant visit [] Patient/Family/Request visit [] Outpatient visit [] Follow-up visit [] Physician referral [] Code/Alert [x] Routine visit [] Staff referral [] Actively dying [] Patient sleeping [] Family support [] [] Out of room [] Palliative care [] [] Receiving care in room [] Pre-surgical visit [] Trauma [] Long length of stay [] ICU visit [] Other: Relational/Emotional Strength [x] Patient feels connected with others/family/visitors/staff [] Distress [] Loneliness/isolation [] Abandonment Spirituality of Patient [x] Person of [place] [x]x Attends Orthodoxy of their [place] [x] Believes in Prayer [x] Reads Bible or Spiritism materials [] There are Spiritual issues to be addressed Pediatric Nephrologist Interventions [x] Prayer [x] Active listening [x] Non-anxious presence [x] Spiritual/emotional support [] Crisis/trauma care [] Spiritual counseling [] Bereavement support [] Provided bereavement packet [] Provided Bible/devotional materials [] Provided toy/stuffed animal, coloring book to patient or family member [] Provided Communion [] Anointing/[place] [] Salvation [x] Completed spiritual assessment [] Other: Impact on Illness or Injury [] Angry [] Fearful [] Anxious [] Often cries [] Exhaustion [] Unable to work [] Unable to attend voodoo [] Unable to walk/stand [] Unable to read [] Unable to drive [] Unable to eat/drink [] Unable to sleep [] Unable to be with family [] Patient intubated [] Other: Summary Time spent with patient 20 min patient feeling better patients nand parents with him
[2021-09-03] MEDS: gadobenate dimeglumine 20 mL vial IV (11:29)
[2021-09-03] MEDS: enoxaparin 40 mg/0.4 mL Syringe SUBCUT (11:42)
--- NOTE | 2021-09-03 11:47 | P.DS_ITS ---
Discharge Providers Date of Admission: 09/02/21 03:11 Date of Discharge: September 03, 2021 Attending Provider at Admission: Cori Nur Attending Provider at Discharge: Deborah Amaya MD Primary Care Provider: Shukri Palmer MD Diagnoses at Discharge Discharge Diagnosis (1) Acute cerebrovascular accident (CVA): Status: Acute (2) Hypertension: Status: Acute (3) Hyperlipidemia: Status: Acute (4) Pituitary gland enlarged: Status: Acute Reason for Visit Reason for Visit: N/V, weakness Discharge Data Data Completed and Pending: Completed Studies During Hospitalization Category Date Time Status CT angio headneck * [id number] Urge nt Cat Scan 09/02/21 01:[address] head wo con* [id number] Urgent Cat Scan 09/01/21 19:42 Completed XR chest 1V grace ble [id number] Urgent Exams 09/01/21 20:10 Completed MR head wo/w con [id number] Urgent MRI 09/01/21 22:55 [place] [id number] Routin e Ultrasound 09/02/21 14:25 Completed Pending at discharge Category Date Time Status CA cardiac event monitor Routine Exams 09/02/21 14:22 Ordered Cortisol Random R outine Lab 09/03/21 06:14 Received Follicle Stimulat ing Hormone Routin e Lab 09/03/21 06:14 Received Luteinizing Hormo ne Routine Lab 09/03/21 06:14 Received Prolactin Routine Lab 09/03/21 06:14 Received Thyroid Stimulati ng Hormone Routine Lab 09/03/21 06:14 Received MR pituitary wo/w con* [id number] Routin e MRI 09/03/21 10:00 Taken CV. echo w/w bubb le cont [id number] Rout ine Ultrasound 09/02/21 14:22 Taken Labs from last 24 hours 09/03/21 09/03/21 09/03/21 06:14 06:14 06:14 WBC RBC Hgb Hct MCV MCH MCHC RDW Plt Count MPV Neut % (Auto) Lymph % (Auto) [place] % (Auto) Eos % (Auto) Baso % (Auto) Neut # (Auto) Lymph # (Auto) [place] # (Auto) Eos # (Auto) Baso # (Auto) Nucleated RBC % (a uto) Nucleated RBCs # Sodium 141 Potassium 4.3 Chloride 105 Carbon Dioxide 26 Anion Gap 14.3 BUN 12 Creatinine 0.8 GFR Calculation 102.3 Glucose 96 Estimat Average Gl ucose Hemoglobin A1c Calculated Osmolal ity 292 Calcium 8.6 Magnesium 2.1 Triglycerides 214 H Cholesterol 183 LDL Cholesterol, C alc 100 HDL Cholesterol 40 L LDL/HDL Ratio 2.50 Cholesterol/HDL Ra scott 4.58 TSH Pending FSH Pending Luteinizing Hormon e Pending Prolactin Pending Random Cortisol Pending Urine Opiates Scre en Ur Barbiturates Sc reen Ur Phencyclidine S crn Ur Amphetamines Sc reen U Benzodiazepines Scrn Urine Cocaine Scre en U Marijuana (THC) Screen 09/03/21 09/03/21 09/03/21 06:14 06:14 06:14 WBC 7.4 RBC 4.78 Hgb 15.1 Hct 42.8 MCV 89.5 MCH 31.6 MCHC 35.3 RDW 13.2 Plt Count 148 MPV 11.8 H Neut % (Auto) 52.2 Lymph % (Auto) 32.7 [place] % (Auto) 11.6 Eos % (Auto) 2.4 Baso % (Auto) 0.7 Neut # (Auto) 3.87 Lymph # (Auto) 2.4 [place] # (Auto) 0.9 Eos # (Auto) 0.2 Baso # (Auto) 0.1 Nucleated RBC % (a uto) 0 Nucleated RBCs # 0.0 Sodium Potassium Chloride Carbon Dioxide Anion Gap BUN Creatinine GFR Calculation Glucose Estimat Average Gl ucose 108 Hemoglobin A1c 5.4 Calculated Osmolal ity Calcium Magnesium Triglycerides Cancelled Cholesterol Cancelled LDL Cholesterol, C alc Cancelled HDL Cholesterol Cancelled LDL/HDL Ratio Cancelled Cholesterol/HDL Ra scott Cancelled TSH FSH Luteinizing Hormon e Prolactin Random Cortisol Urine Opiates Scre en Ur Barbiturates Sc reen Ur Phencyclidine S crn Ur Amphetamines Sc reen U Benzodiazepines Scrn Urine Cocaine Scre en U Marijuana (THC) Screen 09/02/21 18:20 WBC RBC Hgb Hct MCV MCH MCHC RDW Plt Count MPV Neut % (Auto) Lymph % (Auto) [place] % (Auto) Eos % (Auto) Baso % (Auto) Neut # (Auto) Lymph # (Auto) [place] # (Auto) Eos # (Auto) Baso # (Auto) Nucleated RBC % (a uto) Nucleated RBCs # Sodium Potassium Chloride Carbon Dioxide Anion Gap BUN Creatinine GFR Calculation Glucose Estimat Average Gl ucose Hemoglobin A1c Calculated Osmolal ity Calcium Magnesium Triglycerides Cholesterol LDL Cholesterol, C alc HDL Cholesterol LDL/HDL Ratio Cholesterol/HDL Ra scott TSH FSH Luteinizing Hormon e Prolactin Random Cortisol Urine Opiates Scre en Negative Ur Barbiturates Sc reen Negative Ur Phencyclidine S crn Negative Ur Amphetamines Sc reen Negative U Benzodiazepines Scrn Negative Urine Cocaine Scre en Negative U Marijuana (THC) Screen Negative Vitals: Last Vital Signs Temp 98.6 F 09/03/21 07:10 Pulse 60 09/03/21 07:10 Resp 16 09/03/21 07:10 BP 141/90 09/03/21 07:10 Pulse Ox 93 09/03/21 07:10 Discharge Plan Discharge Patient Disposition: Home Condition: Stable Prescriptions: New atorvastatin 40 mg Tablet 80 mg PO BEDTIME Qty: 60 RF: 2 clopidogrel 75 mg Tablet 75 mg PO DAILY Qty: 30 RF: 3 Aspirin Low Dose 81 mg tablet,delayed release (DR/EC) 81 mg PO DAILY Qty: 60 RF: 4 Tylenol 325 mg capsule 325 mg PO Q6H PRN (Reason: fever) Qty: 30 RF: 0 lisinopril 5 mg tablet 5 mg PO DAILY Qty: 30 RF: 3 Continued levothyroxine 137 mcg Tablet 137 mcg PO DAILY RF: 0 escitalopram oxalate 20 mg Tablet 20 mg PO DAILY RF: 0 Discontinued atorvastatin 20 mg Tablet 20 mg PO DAILY RF: 0 Discharge Orders: Discharge Order (Routine); Ordered 09/03/21 Ordered By: Deborah Amaya Other Ambulatory Orders: CA cardiac event monitor (Routine) Timeframe: 21 Days Facility: [facility] - Location: [facility] Ordered By: Deborah Amaya Referrals: Erlinda Biswas MD [Physician] - 4-7 days Shukri Palmer MD [Primary Care Provider] - 7-10 days Discharge Diet: As Directed Discharge Activity: Resume usual activity Patient Instructions: Opioid Safety Coding Level of Care Code Acute Chg FW DC note Diagnoses Acute cerebrovascular accident (CVA) I63.9 Hypertension I10 Hyperlipidemia E78.5 Pituitary gland enlarged E23.6
[2021-09-03 12:28] LABS: Follicle Stimulating Hormone 4.1 mIU/mL (1.5-12.4); Luteinizing Hormone 5.4 mIU/mL (1.7-8.6); Prolactin 14.96 ng/mL (4.0-15.2); Thyroid Stimulating Hormone 0.17 uIU/mL (0.27-4.20)
[2021-09-03 13:39] LABS: Cortisol Random 7.81 ug/dL (2.47-19.5)
[2021-09-03] MEDS: aspirin 325 mg Tablet PO (13:56)
[2021-09-03] MEDS: acetaminophen 500 mg Tablet 650 MG PO (13:56)
--- NOTE | 2021-09-03 14:51 | PM.TDS ---
Transfer Summary Providers Date of Admission: 09/02/21 03:11 Date of Discharge: 09/03/21 Attending Provider at Admission: Cori Nur Attending Provider at Transfer: Deborah Amaya MD Primary Care Provider: Shukri Palmer MD Anticipated Date of Transfer: Anticipated date of transfer: 09/03/21 Receiving Facility & Provider: Receiving Provider: [] Receiving facility: [] Diagnoses at Discharge Discharge Diagnosis (1) Acute cerebrovascular accident (CVA): Status: Acute (2) Hypertension: Status: Acute (3) Hyperlipidemia: Status: Acute (4) Pituitary gland enlarged: Status: Acute Reason for Visit Reason for Visit: N/V, weakness Hospital Course Hospital Course History of Present Illness by Dr. Nur 51 year old male with past medical history significant for hypothyroidism and hyperlipidemia who presented to ER with right sided visual changes. Patient noted initial episode on 08/31 at 10;30 am which lasted until around 3 pm. Noted patchy area of visual field deficit followed by sharp right sided headache. Described this as ?knife like pain behind right eye?. Denied pain with eye movement, redness or tearing. Took Tylenol which help relieved pain. Today around 6 pm again noted similar episode after which he presented to ER. Of note he did not have any additional weakness. Upon arrival his symptoms had resolved after pain medication. Did no thave any complaint of visual changes at the time of my eval. Denied any prior history of migraines or strokes. Denied cheat pain however did note dyspnea on exertion. No orthopnea. 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 MRI brain was consistent with acute lacunar infarct left occipital right parietal area with no intracranial hemorrhage, pituitary gland prominence was noted on initial MRI, echo with bubble was unremarkable, patient remained in sinus rhythm, dyslipidemia noted, CT head and neck unremarkable, chest x-ray unremarkable, hemoglobin A1c 5.4, triglyceride 214, LDL 100 TSH 0.17 Free T4 normal, LH FSH within normal range, prolactin 14.9, random cortisol within normal range, Repeat MRI pituitary was obtained which showed pituitary macroadenoma, case was presented to neurosurgeon at [facility] Secondary to vision changes and macroadenoma he was accepted at [facility] for further intervention which is of utmost importance at this point to avoid further vision deterioration. He needs neurosurgery assessment and further work-up for which he will be transferred from our hospital to [facility] via air [facility]. It is very important that he gets transported as soon as possible to be seen by neurosurgeon. For his multiple lacunar infarcts he was started on aspirin, Plavix and high-dose atorvastatin. Patient and family is in agreement. MR/MR pituitary wo/w con* [id number] IMPRESSION: 1. 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 This measures approximately 11.2 x 13.6 x 10.0 mm AP by transverse by craniocaudal. Mild suprasellar extension. Recommend neurosurgery consultation. 2. Leftward displacement of the pituitary infundibulum. No impingement on the optic chiasm. Enhancing adenoma tissue extends about the right cavernous sinus. 3. Stable tiny foci of restricted diffusion consistent with small acute lacunar infarcts in the right parietal and occipital lobes unchanged from previou Physical Exam Narrative: EXAM NARRATIVE: Patient was complaining of blurry vision Otherwise nonfocal neuro exam Good strength of upper and lower extremities EOMI, PERRLA No neck stiffness S1, S2 Morbid obesity Euvolemic Patient was dressed up to go home however plan was changed and he was transferred to [facility] Breathing well on room air TS Data Data Completed and Pending: Completed Studies During Hospitalization Category Date Time Status CT angio headneck * [id number] Urge nt Cat Scan 09/02/21 01:[address] head wo con* [id number] 0450 Urgent Cat Scan 09/01/21 19:42 Completed XR chest 1V grace ble [id number] Urgent Exams 09/01/21 20:10 Completed MR head wo/w con [id number] Urgent MRI 09/01/21 22:55 Completed MR pituitary wo/w con* [id number] Routin e MRI 09/03/21 10:00 [place] [id number] Routin e Ultrasound 09/02/21 14:25 Completed CV. echo w/w bubb le cont [id number] Rout ine Ultrasound 09/02/21 14:22 Completed Pending at discharge Category Date Time Status CA cardiac event monitor Routine Exams 09/02/21 14:22 Ordered Free T4 Free Thyr oxine Routine Lab 12/27/21 06:14 Received Labs from last 24 hours 09/03/21 09/03/21 09/03/21 06:14 06:14 06:14 WBC RBC Hgb Hct MCV MCH MCHC RDW Plt Count MPV Neut % (Auto) Lymph % (Auto) [place] % (Auto) Eos % (Auto) Baso % (Auto) Neut # (Auto) Lymph # (Auto) [place] # (Auto) Eos # (Auto) Baso # (Auto) Nucleated RBC % (a uto) Nucleated RBCs # Sodium Potassium Chloride Carbon Dioxide Anion Gap BUN Creatinine GFR Calculation Glucose Estimat Average Gl ucose Hemoglobin A1c Calculated Osmolal ity Calcium Magnesium Triglycerides Cholesterol LDL Cholesterol, C alc HDL Cholesterol LDL/HDL Ratio Cholesterol/HDL Ra scott TSH 0.17 L Free T4 Pending FSH 4.1 Luteinizing Hormon e 5.4 Prolactin 14.96 Random Cortisol 7.81 Urine Opiates Scre en Ur Barbiturates Sc reen Ur Phencyclidine S crn Ur Amphetamines Sc reen U Benzodiazepines Scrn Urine Cocaine Scre en U Marijuana (THC) Screen 09/03/21 09/03/21 09/03/21 06:14 06:14 06:14 WBC 7.4 RBC 4.78 Hgb 15.1 Hct 42.8 MCV 89.5 MCH 31.6 MCHC 35.3 RDW 13.2 Plt Count 148 MPV 11.8 H Neut % (Auto) 52.2 Lymph % (Auto) 32.7 [place] % (Auto) 11.6 Eos % (Auto) 2.4 Baso % (Auto) 0.7 Neut # (Auto) 3.87 Lymph # (Auto) 2.4 [place] # (Auto) 0.9 Eos # (Auto) 0.2 Baso # (Auto) 0.1 Nucleated RBC % (a uto) 0 Nucleated RBCs # 0.0 Sodium 141 Potassium 4.3 Chloride 105 Carbon Dioxide 26 Anion Gap 14.3 BUN 12 Creatinine 0.8 GFR Calculation 102.3 Glucose 96 Estimat Average Gl ucose Hemoglobin A1c Calculated Osmolal ity 292 Calcium 8.6 Magnesium 2.1 Triglycerides 214 H Cancelled Cholesterol 183 Cancelled LDL Cholesterol, C alc 100 Cancelled HDL Cholesterol 40 L Cancelled LDL/HDL Ratio 2.50 Cancelled Cholesterol/HDL Ra scott 4.58 Cancelled TSH Free T4 FSH Luteinizing Hormon e Prolactin Random Cortisol Urine Opiates Scre en Ur Barbiturates Sc reen Ur Phencyclidine S crn Ur Amphetamines Sc reen U Benzodiazepines Scrn Urine Cocaine Scre en U Marijuana (THC) Screen 09/03/21 09/02/21 06:14 18:20 WBC RBC Hgb Hct MCV MCH MCHC RDW Plt Count MPV Neut % (Auto) Lymph % (Auto) [place] % (Auto) Eos % (Auto) Baso % (Auto) Neut # (Auto) Lymph # (Auto) [place] # (Auto) Eos # (Auto) Baso # (Auto) Nucleated RBC % (a uto) Nucleated RBCs # Sodium Potassium Chloride Carbon Dioxide Anion Gap BUN Creatinine GFR Calculation Glucose Estimat Average Gl ucose 108 Hemoglobin A1c 5.4 Calculated Osmolal ity Calcium Magnesium Triglycerides Cholesterol LDL Cholesterol, C alc HDL Cholesterol LDL/HDL Ratio Cholesterol/HDL Ra scott TSH Free T4 FSH Luteinizing Hormon e Prolactin Random Cortisol Urine Opiates Scre en Negative Ur Barbiturates Sc reen Negative Ur Phencyclidine S crn Negative Ur Amphetamines Sc reen Negative U Benzodiazepines Scrn Negative Urine Cocaine Scre en Negative U Marijuana (THC) Screen Negative Vitals: Last Vital Signs Temp 98.6 F 09/03/21 07:10 Pulse 60 09/03/21 07:10 Resp 16 09/03/21 07:10 BP 141/90 09/03/21 07:10 Pulse Ox 93 09/03/21 07:10 TS Medications Medications Home Medications escitalopram oxalate 20 mg PO DAILY 09/02/21 [History Confirmed 09/02/21] levothyroxine 137 mcg PO DAILY 09/02/21 [History Confirmed 09/02/21] acetaminophen [Tylenol] 325 mg PO Q6H PRN #30 cap 09/03/21 [Rx] aspirin [Aspirin Low Dose] 81 mg PO DAILY #60 tab 09/03/21 [Rx] atorvastatin 80 mg PO BEDTIME #60 tab 09/03/21 [Rx] clopidogrel 75 mg PO DAILY #30 tab 09/03/21 [Rx] lisinopril 5 mg PO DAILY #30 tab 09/03/21 [Rx] Active Medications Acetaminophen (Acetaminophen 500 Mg Tablet) 650 mg PO Q6H PRN PRN Reason: FEVER Last Admin: 09/03/21 13:56 Dose: 650 mg Documented by: Aspirin (Aspirin 325 Mg Tablet) 325 mg PO DAILY CHIARA Last Admin: 09/03/21 13:56 Dose: 325 mg Documented by: Atorvastatin Calcium (Atorvastatin 40 Mg Tablet) 80 mg PO BEDTIME [facility] Last Admin: 09/02/21 21:03 Dose: 80 mg Documented by: Clopidogrel Bisulfate (Clopidogrel 75 Mg Tablet) 75 mg PO DAILY [facility] Last Admin: 09/03/21 13:31 Dose: Not Given Documented by: Enoxaparin Sodium (Enoxaparin 40 Mg/0.4 Ml Syringe) 40 mg SUBCUT Q24H [facility] Last Admin: 09/03/21 11:42 Dose: 40 mg Documented by: Valproic Acid 500 mg/ Sodium (Chloride) 55 mls @ 55 mls/hr IV ONCE [facility] Last Infusion: 09/02/21 04:33 Dose: Infused Documented by: Discharge Plan Discharge Patient Disposition: er Intermediate Care Fac Condition: Stable Prescriptions: New atorvastatin 40 mg Tablet 80 mg PO BEDTIME Qty: 60 RF: 2 clopidogrel 75 mg Tablet 75 mg PO DAILY Qty: 30 RF: 3 Aspirin Low Dose 81 mg tablet,delayed release (DR/EC) 81 mg PO DAILY Qty: 60 RF: 4 Tylenol 325 mg capsule 325 mg PO Q6H PRN (Reason: fever) Qty: 30 RF: 0 lisinopril 5 mg tablet 5 mg PO DAILY Qty: 30 RF: 3 Continued levothyroxine 137 mcg Tablet 137 mcg PO DAILY RF: 0 escitalopram oxalate 20 mg Tablet 20 mg PO DAILY RF: 0 Discontinued atorvastatin 20 mg Tablet 20 mg PO DAILY RF: 0 Other Ambulatory Orders: CA cardiac event monitor (Routine) Timeframe: 21 Days Facility: [facility] - Location: Cardiac Diagnostic Laboratory Ordered By: Deborah Amaya Referrals: Erlinda Biswas MD [Physician] - 09/17/21 11:45 am Shukri Palmer MD [Primary Care Provider] - 09/05/21 3:00 pm Discharge Diet: As Directed Discharge Activity: Resume usual activity Patient Instructions: Lisinopril (By mouth), Aspirin (By mouth), Atorvastatin (By mouth), Clopidogrel (By mouth), Ischemic Stroke (IP), Hypertension (DC), Opioid Safety, Stroke Stoplight Transfer Attestations Time Spent in Transfer Care*: greater than 30 min Quality Metrics Clinical Quality Measures: During this hospital stay, did patient experience: Stroke Contraindication to Antithrombotic: Antithrombotic prescribed Contraindication to Anticoagulation: Overlap treatment not indicated Contraindication to Statin: Statin prescribed Coding Level of Care Code Acute Machine Grinder for Chg Fwd Diagnoses Acute cerebrovascular accident (CVA) I63.9 Hypertension I10 Hyperlipidemia E78.5 Pituitary gland enlarged E23.6
[2021-09-03 14:58] LABS: Free T4 Free Thyroxine 1.52 ng/dL (0.82-1.77)
[2021-09-03 15:38] VITALS: BP 149/92; PULSE 61; RESP 16; TEMP 36.6; O2SAT 97
== END 2021-09-03 17:03 | disposition short-term general hospital (02) | DRG 66 ==
LOC: ER 09-02 03:21 → MEDSURG 09-02 04:58
PROVIDERS: Internal Medicine; Admitting Provider Hospitalist; Emergency Provider Emergency Medicine; PCP Family Medicine; Visit Provider Internal Medicine
DX: I63.81 Other cerebral infarction due to occlusion or stenosis of small artery (principal); D35.2 Benign neoplasm of pituitary gland; R29.700 NIHSS score 0; I10 Essential (primary) hypertension; E03.9 Hypothyroidism, unspecified; E78.5 Hyperlipidemia, unspecified; I48.91 Unspecified atrial fibrillation; E66.01 Morbid (severe) obesity due to excess calories; Z68.36 Body mass index [BMI] 36.0-36.9, adult
CPT/HCPCS: 70450; 70496; 70498; 70553; 71045; 80048; 80053; 80061; 80306; 82533; 82550; 83001; 83002; 83036; 83735; 84146; 84439; 84443; 84484; 85025; 86140; 92523; 93005; 93271; 93970; 94664; 96365; 96375; 97165; 99291; 99292; A9577; C8929; J1170; J1650; J1885; J2405; J2765; J3010; J3490; Q9967

== ENCOUNTER 2022-08-05 23:58 | Inpatient (IN) | payer BC, SELFPAY ==
--- NOTE | 2022-08-05 23:59 | ECG_ITS ---
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 Measurements Intervals [place] Rate: 67 P: 43 WV: 147 QRS: -58 QRSD: 102 T: 21 QT: 413 QTc: 438 Interpretive Statements SINUS RHYTHM LEFT ANTERIOR FASCICULAR BLOCK [QRS AXIS <= -45, QR IN I, RS IN II] Compared to ECG 08/06/2022 00:06:28 No significant changes Electronically Signed On 08-06-2022 18:08:58 TECHNOLOGY ARCHITECT by Rohini Herrmann M.D. [id number]
[2022-08-06] VITALS (172 sets, daily range): BP systolic 105–225; BP diastolic 60–156; PULSE 57–119; RESP 7–36; TEMP 36.5–37.2; O2SAT 90–100; BMI 36.5
--- NOTE | 2022-08-06 | XRR_ITS ---
PROCEDURE INFORMATION: Exam: XR Chest Exam date and time: 08/06/2022 1:35 AM Age: 52 years old Clinical indication: Chest pressure; Patient HX: C/O central chest pain TECHNIQUE: Imaging protocol: Radiologic exam of the chest. Views: 1 view. COMPARISON: CR XR chest 1V portable [id number] 09/01/2021 8:23 PM FINDINGS: Lungs: There is mildly increased lung markings, which may be secondary to low lung volumes or mild pulmonary congestion. No consolidation. Pleural spaces: Unremarkable. No pleural effusion. No pneumothorax. Heart/Mediastinum: Stable cardiomediastinal silhouette. Bones/joints: Degenerative changes of the spine seen. XR/XR chest 1V portable [id number] IMPRESSION: Low lung volumes versus mild pulmonary congestion.
--- NOTE | 2022-08-06 00:06 | ECG_ITS ---
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 Measurements Intervals [place] Rate: 64 P: 24 AR: 149 QRS: -49 QRSD: 103 T: 21 QT: 390 QTc: 403 Interpretive Statements SINUS RHYTHM LEFT ANTERIOR FASCICULAR BLOCK [QRS AXIS <= -45, QR IN I, RS IN II] Compared to ECG 09/02/2021 04:50:18 Left anterior fascicular block now present T-wave abnormality no longer present Electronically Signed On 08-06-2022 18:12:06 NETWORK SOLUTIONS ARCHITECT by Rohini Herrmann M.D. [id number]
--- NOTE | 2022-08-06 00:45 | W.ED.CHESTPA ---
HPI - Chest Pain General: Chief Complaint: Chest Pain Stated Complaint: Chest Pains Time Seen by Provider: 08/06/22 00:01 Source: patient Mode of arrival: ambulatory Limitations: no limitations History of Present Illness: 52-year-old male states he been having chest pain over the last 3 days. He states that he is having worsening pain tonight states that since his pain is improved currently 2 out of 10 denies any shortness of breath denies any nausea vomiting denies any fever. Associated symptoms: Deny abdominal pain, dyspnea, fever(s), nausea or vomiting Review of Systems Const: Denies: fever(s), chills, body aches or change in appetite Eyes: Denies: blurry vision or eye discomfort ENMT: Denies: throat pain or dental pain Card: Reports: chest pain Resp: Denies: dyspnea GI: Denies: abdominal pain, nausea, vomiting or diarrhea : Denies: dysuria Musc: Denies: neck pain or back pain Skin/Breast: Denies: rash Neuro: Denies: headache(s) Psych: Denies: depression Nikko/Lymph: Denies: easy bruising All/Imm: Denies: urticaria PFSH ED PFSH: Medical History (Updated 08/06/22 @ 02:03 by Tej Worley MD) Acute cerebrovascular accident (CVA) Hyperlipidemia Hypertension No pertinent family history Surgical History (Updated 09/02/21 @ 04:26 by Cori Nur MD) History of orthopedic surgery Social History (Updated 09/02/21 @ 04:27 by Cori Nur MD) Smoking and tobacco status: never smoked Alcohol intake: current Physical Exam Const: COMMON NORMALS: no acute distress, patient oriented x3 and healthy appearing HENMT: COMMON NORMALS: normocephalic and atraumatic HEAD & SCALP: normocephalic and atraumatic Eye: COMMON NORMALS: Equal, round and reactive pupils present and EOMs intact bilaterally PUPIL: Yes Equal, round and reactive pupils present Neck/C-Spine: COMMON NORMALS: full ROM and supple Chest: COMMONS NORMALS: normal inspection of the chest and normal palpation of entire chest wall Resp: COMMON NORMALS: normal respiratory effort, No retractions, No use of accessory muscles and clear to auscultation bilaterally AUSCULTATION: clear to auscultation bilaterally Cardio: COMMON NORMALS: regular rate, regular rhythm and No murmurs present (Cardio) RATE: regular rate RHYTHM: regular rhythm GI: COMMON NORMALS: Normal to inspection, nondistended, normoactive bowel sounds present, Soft to palpation, non-tender and no masses PALPATION: Yes Soft to palpation Extremity: COMMON NORMALS: normal to inspection and full ROM Neuro: COMMON NORMALS: patient oriented x3, moves all extremities and no focal motor deficits Psych: COMMON NORMALS: mental status grossly normal, Normal thought process present and cooperative THOUGHT PROCESS: Normal thought process present Skin: COMMON NORMALS: no rashes or lesions noted and no wounds GENERAL SKIN EXAM: no rashes or lesions noted Course Vital Signs: Vital signs: Vital Signs Temperature 97.9 F 08/06/22 00:00 Pulse Rate 70 08/06/22 00:00 Respiratory Rate 18 08/06/22 00:00 Blood Pressure 172/110 08/06/22 00:00 Pulse Oximetry 96 08/06/22 00:00 MDM - Chest Pain Medical Decision Making Patient presents here with chest pain his initial troponin here is elevated he is pain-free currently after nitro EKG is normal spoke to hospitalist will admit for observation. Lab Data 08/06/22 00:40 08/06/22 00:40 Radiology Impressions Chest X-Ray 08/06/22 00:00 IMPRESSION: Low lung volumes versus mild pulmonary congestion. Laboratory Results WBC 7.7 10^3/uL (4.0-10.0) 08/06/22 00:40 RBC 4.87 10^6/uL (4.1-5.3) 08/06/22 00:40 Hgb 15.9 g/dL (11.7-16.6) 08/06/22 00:40 Hct 44.6 % (42.0-52.0) 08/06/22 00:40 MCV 91.6 fl (80-94) 08/06/22 00:40 MCH 32.6 pg (28.0-34.0) 08/06/22 00:40 MCHC 35.7 g/dL (30.0-36.0) 08/06/22 00:40 RDW 13.3 % (12.1-15.1) 08/06/22 00:40 Plt Count 150 10^3/cmm (130-400) 08/06/22 00:40 MPV 11.8 fL (7.4-10.4) H 08/06/22 00:40 Neut % (Auto) 53.2 % 08/06/22 00:40 Lymph % (Auto) 33.0 % 08/06/22 00:40 Ness % (Auto) 8.0 % 08/06/22 00:40 Eos % (Auto) 4.3 % 08/06/22 00:40 Baso % (Auto) 0.9 % 08/06/22 00:40 Neut # (Auto) 4.11 10^3/uL (1.8-7.7) 08/06/22 00:40 Lymph # (Auto) 2.6 10^3/uL (0.8-4.8) 08/06/22 00:40 Ness # (Auto) 0.6 10^3/uL (0.2-0.9) 08/06/22 00:40 Eos # (Auto) 0.3 10^3/uL (0.0-0.8) 08/06/22 00:40 Baso # (Auto) 0.1 10^3/uL (0.0-0.1) 08/06/22 00:40 Nucleated RBC % (auto) 0 % 08/06/22 00:40 Nucleated RBCs # 0.0 /100WBC 08/06/22 00:40 Sodium 135 mmol/L (136-145) L 08/06/22 00:40 Potassium 4.1 mmol/L (3.5-5.1) 08/06/22 00:40 Chloride 100 mmol/L (98-107) 08/06/22 00:40 Carbon Dioxide 23 mmol/L (22-29) 08/06/22 00:40 Anion Gap 16.1 (5-19) 08/06/22 00:40 BUN 19 mg/dL (6-20) 08/06/22 00:40 Creatinine 1.0 mg/dL (0.7-1.2) 08/06/22 00:40 GFR Calculation 78.8 mL/min (90-130) L 08/06/22 00:40 Glucose 115 mg/dL (65-115) 08/06/22 00:40 Calculated Osmolality 283 mOsm/kg (285-295) L 08/06/22 00:40 Calcium 10.3 mg/dL (8.5-10.5) 08/06/22 00:40 Total Bilirubin 0.3 mg/dL (0.15-1.2) 08/06/22 00:40 AST 27 U/L (0-40) 08/06/22 00:40 ALT 28 U/L (0-41) 08/06/22 00:40 Alkaline Phosphatase 95 U/L (40-130) 08/06/22 00:40 Troponin T Baseline 57 ng/L (0-15) H 08/06/22 00:40 NT-Pro-B Natriuret Pep 85 pg/mL (0-125) 08/06/22 00:40 Total Protein 7.1 g/dL (6.6-8.7) 08/06/22 00:40 Albumin 4.5 g/dL (3.5-5.2) 08/06/22 00:40 Globulin 2.6 g/dL (1.3-4.6) 08/06/22 00:40 Lipase 42 U/L (13-60) 08/06/22 00:40 EKG Data EKG 1: I personally reviewed and interpreted this EKG as follows: EKG interpretation date: 08/06/22 EKG interpretation time: 00:06 Interpretation: nsr hr [address] or t wave abnormalities qrs 103 qtc 399 Discharge Plan Discharge Patient Disposition: Admitted As Inpatient Clinical Impression: Non-ST elevation OR (NSTEMI) Condition: Stable Coding Level of Care Code ED Kindergarten Assistant for Chg Fwd Exam Comprehensive
[2022-08-06 00:49] LABS: Basophils # 0.1 10^3/uL (0.0-0.1); Basophils % 0.9 %; Eosinophils # 0.3 10^3/uL (0.0-0.8); Eosinophils % 4.3 %; Hematocrit 44.6 % (42.0-52.0); Hemoglobin 15.9 g/dL (11.7-16.6); Lymphocytes # 2.6 10^3/uL (0.8-4.8); Mean Corpuscular HGB Conc 35.7 g/dL (30.0-36.0); Mean Corpuscular Hemoglobin 32.6 pg (28.0-34.0); Mean Corpuscular Volume 91.6 fl (80-94); Mean Platelet Volume 11.8 fL (7.4-10.4); Monocytes # 0.6 10^3/uL (0.2-0.9); Neutrophils # 4.11 10^3/uL (1.8-7.7); Neutrophils % 53.2 %; Nucleated Red Blood Cells % 0 %; Platelet Count 150 10^3/cmm (130-400); Red Blood Count 4.87 10^6/uL (4.1-5.3); Red Cell Distribution Width 13.3 % (12.1-15.1); White Blood Count 7.7 10^3/uL (4.0-10.0)
[2022-08-06] MEDS: hyDRALAzine 20 mg/mL INJ 1 mL 10 MG IVP (00:58)
[2022-08-06 01:11] LABS: Troponin(5th) Baseline 57 ng/L (0-15)
[2022-08-06 01:21] LABS: Alanine Aminotransferase 28 U/L (0-41); Albumin Level 4.5 g/dL (3.5-5.2); Alkaline Phosphatase 95 U/L (40-130); Blood Urea Nitrogen 19 mg/dL (6-20); Calcium 10.3 mg/dL (8.5-10.5); Carbon Dioxide 23 mmol/L (22-29); Chloride 100 mmol/L (98-107); Globulin 2.6 g/dL (1.3-4.6); Glomerular Filtration Rate 78.8 mL/min (90-130); Glucose 115 mg/dL (65-115); Lipase 42 U/L (13-60); NT Pro B Type Natriuretic Pept 85 pg/mL (0-125); Osmolality Calculated 283 mOsm/kg (285-295); Sodium 135 mmol/L (136-145); Total Bilirubin 0.3 mg/dL (0.15-1.2); Total Protein 7.1 g/dL (6.6-8.7)
[2022-08-06 01:32] LABS: Anion Gap 16.1 (5-19); Aspartate Amino Transferase 27 U/L (0-40); Potassium 4.1 mmol/L (3.5-5.1)
[2022-08-06] MEDS: nitroglycerin 0.4 mg sublingual Tablet SUBLINGUAL (02:11)
[2022-08-06] MEDS: enoxaparin 120 mg/0.8 mL Syringe SUBCUT (02:11)
--- NOTE | 2022-08-06 02:22 | P.HP_ITS ---
Providers/Chief Complaint Primary Care Provider: Shukri Palmer MD Chief Complaint: Chest Pains History of Present Illness Darin Mederos is a 52 year old male with history of macroadenoma he was transferred to [facility] for possible intervention however he is being managed conservatively presenting today with chief complaint of chest pain. Patient is stating that for last 3 days he is experiencing left-sided substernal chest pain which he is describing as heaviness which gets worse on minimal exertion, chest pain associated with shortness of breath as well he has not noticed any fever, nausea, vomiting however he is endorsing bilateral arm numbness and tingling. 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 He does not smoke drinks alcohol occasionally. No significant family history for heart disease. He is not experiencing blurry vision, erectile dysfunction. Normally his blood pressure is around 120s on lisinopril 5 mg at home. In the ER he was diagnosed with unstable angina he was given aspirin and therapeutic dose of Lovenox, he still experiencing mild chest pain however it did respond very well to nitroglycerin, he was hypotensive at the time of ER evaluation his blood pressure dropped with nitroglycerin I have asked ER nurse not to give nitroglycerin anymore, would use morphine for now onwards Second hour troponin is pending EKG showing sinus rhythm Patient is stating that he does have a diagnosis of sleep apnea he does have CPAP that she does not use at home In the ER he received 10 mg of hydralazine, 0.4 mg of nitroglycerin, therapeutic dose of Lovenox Review of Systems Const: Denies: fever(s) Eyes: Denies: change in vision ENMT: Denies: throat pain Card: Reports: chest pain Resp: Reports: dyspnea GI: Denies: abdominal pain : Denies: flank pain Musc: Denies: neck pain Skin/Breast: Denies: rash Neuro: Denies: headache(s) Psych: Denies: anxiety Endo: Denies: polyuria Nikko/Lymph: Denies: easy bruising All/Imm: Denies: urticaria Medications/Allergies Home Medications Medication Instructions Recorded Confirmed Last Taken Type escitalopram oxalate 20 mg tablet 20 mg PO DAILY 09/02/21 09/02/21 08/31/21 08:00 History levothyroxine 137 mcg tablet 137 mcg PO DAILY 09/02/21 09/02/21 08/31/21 07:00 H istory acetaminophen 325 mg capsule 325 mg PO Q6H PRN fever #30 caps 09/03/21 Unknown Rx (Tylenol) aspirin 81 mg tablet,delayed 81 mg PO DAILY #60 tabs 09/03/21 Unknown Rx release (Arnulfo Low Dose Aspirin) atorvastatin 40 mg tablet 80 mg PO BEDTIME #60 tabs 09/03/21 Unknown Rx clopidogrel 75 mg tablet 75 mg PO DAILY #30 tabs 09/03/21 Unknown Rx lisinopril 5 mg tablet 5 mg PO DAILY #30 tabs 09/03/21 Unknown Rx Allergies Allergy/AdvReac Type Severity Reaction Status Date / Time No Known Allergies Allergy Verified 09/01/21 19:39 PFSH Acute PFSH: Medical History Acute cerebrovascular accident (CVA) Hyperlipidemia Hypertension No pertinent family history Surgical History History of orthopedic surgery Family History Denies family history of CAD (coronary artery disease) Social History Smoking and tobacco status: never smoked Alcohol intake: current Vitals/I&O/Wt Last Vital Signs Temp 97.9 F 08/06/22 00:00 Pulse 70 08/06/22 00:00 Resp 18 08/06/22 00:00 BP 172/110 08/06/22 00:00 Pulse Ox 96 08/06/22 00:00 Weight last 48 hrs Weight 118.841 kg Physical Exam Narrative: Awake and alert Morbidly obese S1, S2 Currently on room air Normal hemodynamics Awake and alert Pleasant and cooperative No signs of heart failure Abdomen soft No audible stridor or wheezing S1, S2 NIH 0 Pleasant cooperative Complaining of mild chest discomfort Data 08/06/22 00:40 08/06/22 00:40 A&P Assessment and plan (1) Unstable angina: Plan Unstable angina First troponin 57 I will start patient on ACS protocol Trend troponin, requested echo Serial EKGs Patient will need cardiology consultation in the morning, please consult cardiology in a.m. I will keep patient n.p.o. for possible coronary intervention in the morning Continue therapeutic Lovenox aspirin, Plavix Low-dose lisinopril I have requested D-dimer, if D-dimer is high then he will need CTA chest to rule out aortic dissection along with echo Hypertensive urgency Patient's blood pressure dropped significantly after getting hydralazine and nitroglycerin in the ER I will keep him on normal saline for now his blood pressure is 105/72 mmHg, continue low-dose lisinopril Pituitary macroadenoma: Conservative management Patient is not experiencing any blurry vision or erectile dysfunction, patient considers himself fairly active Full code Cardiac diet DVT prophylaxis currently on therapeutic Lovenox Attestations Medical Necessity Statement*: Anticipating more than 2 midnights for management of possible NSTEMI Time Spent in Patient Care: 40 Coding Level of Care Code Acute Tax Compliance Officer for Gretchen Morrell Diagnoses Unstable angina I20.0
--- NOTE | 2022-08-06 02:42 | USCV_ITS ---
GatitoDarin Age: 52 Gender: M : 1970 Exam Date: 08/06/2022 02:58 Ordering Phys: Deborah Amaya MD Technologist: NEY Exam Location: [facility] [place] Indication: CP, NSTEMI. No history of cardiac intervention per patient. BP: 105 / 62 HR: 64 Rhythm: Sinus Technical Quality: Adequate MEASUREMENTS (Male / Female) Normal Values 2D ECHO LV Diastolic Diameter PLAX 4.8 cm 4.2 - 5.9 / 3.9 - 5.3 cm LV Systolic Diameter PLAX 3.0 cm IVS Diastolic Thickness 1.3 cm 0.6 - 1.0 / 0.6 - 0.9 cm IVS Systolic Thickness 2.2 cm LVPW Diastolic Thickness 1.5 cm 0.6 - 1.0 / 0.6 - 0.9 cm LVPW Systolic Thickness 1.9 cm LVOT Diameter 2.1 cm LV Ejection Fraction 2D Teich 67.0 % LV Ejection Fraction MOD 2C 63.2 % LV Ejection Fraction 2C AL 64.3 % LA Diameter 5.1 cm LA Width 5.2 cm LA Height 5.6 cm RA Width 3.9 cm RA Height 4.9 cm Aorta at Sinotubular Diameter 3.5 cm IVC Diameter 2.0 cm M-MODE Aortic Annulus Diameter 3.4 cm LA Ao Ratio MM 1.5 MV E Point Septal Separation 0.3 cm DOPPLER AV Peak Velocity 136.0 cm/s LVOT Peak Velocity 118.0 cm/s AV Area Cont Eq vti 3.1 cm squared AV Area Cont Eq pk 3.1 cm squared MV Area PHT 3.5 cm squared Mitral E to A Ratio 1.1 MV E' Velocity 45.5 cm/s Mitral E to MV E' Ratio 11.4 Mitral E to LV E' Lateral Ratio 11.6 Mitral E to LV E' Septal Ratio 11.3 TR Peak Velocity 218.0 cm/s TR Peak Gradient 19.0 mmHg TV Peak E Velocity 51.0 cm/s Right Atrial Pressure 5.0 mmHg Pulmonary Artery Systolic Pressu 24.0 mmHg PV Peak Velocity 88.0 cm/s RV Acceleration Time 0.1 s RV Ejection Time 0.4 s RV AcT/ET 0.3 FINDINGS Left Ventricle Normal left ventricular size, systolic function and wall thickness, with no regional wall motion abnormalities. Left ventricular ejection fraction is estimated at 70 %. Normal diastolic function. Right Ventricle Normal right ventricular size and systolic function. RVSP could not be calculated due to incomplete tricuspid regurgitation velocity profile. Right Atrium Normal right atrial size. Left Atrium Mildly increased left atrial size. Mitral Valve Structurally normal mitral valve. No mitral valve stenosis. Trace mitral valve regurgitation. Aortic Valve Structurally normal trileaflet aortic valve. No aortic valve stenosis. No aortic valve regurgitation. Tricuspid Valve Structurally normal tricuspid valve. No tricuspid valve stenosis. Trace tricuspid valve regurgitation. Pulmonic Valve Pulmonic valve not well visualized. No pulmonary valve stenosis. No significant pulmonary valve regurgitation. Pericardium No pericardial effusion. Aorta Normal size aortic root and proximal ascending aorta. IVC Normal IVC dimension with >50% respiratory change of the inferior vena cava. CONCLUSIONS 1. Normal left ventricular size, systolic function and wall thickness, with no regional wall motion abnormalities. Left ventricular ejection fraction is estimated at 70 %. Normal diastolic function. 2. Normal right ventricular size and systolic function. 3. No significant valvular abnormality. 4. No change when compared to prior study dated 09/02/2021. Rohini Herrmann MD (Electronically Signed) Final Date: 06 August 2022 17:20 S
[2022-08-06 02:51] LABS: Troponin 5 2HR 56.66 ng/L (0-15)
[2022-08-06 02:52] LABS: Troponin 5 2HR Delta -0.34 ABS# (0-10)
[2022-08-06 02:56] LABS: D Dimer 0.37 ug/mIFEU (0-0.59)
[2022-08-06] MEDS: morphine 4 mg/mL SDV 1 mL 2 MG IVP ×2 (04:09→05:54)
[2022-08-06] MEDS: ondansetron 2 mg/ML SDV 2 mL 4 MG IVP ×2 (04:10→17:36)
[2022-08-06] MEDS: sodium chloride 0.9% 1,000 ML 75 ML IV ×2 (04:25→15:56)
--- NOTE | 2022-08-06 04:32 | PC.NURSE ---
Dr. Amaya notified of patient c/o chest pain 03/17 after receiving Morphine. Blood pressure 154/90. Ordered nitro drip and transfer to CSU.
--- NOTE | 2022-08-06 04:53 | PC.NURSE ---
Report given to Veronica in ICU. Patient transfered to ICU.
[2022-08-06] MEDS: nitroglycerin drip 50 MG/250 ML PREMIX IV (04:58)
--- NOTE | 2022-08-06 05:01 | PC.NURSE ---
Pt arrived to ICU via wheelchair. @bedside, belongings @ bedside. Pt complaining of 7/10 chest pain that radiates down both arms and into his jaw.
--- NOTE | 2022-08-06 05:40 | PC.NURSE ---
Pt continues to complain of 7/10 chest pain. BP has decreased. Dr. Amaya updated on pt condition. New orders to pause the nitro drip, start Morphine Q2H, and obtain a stat EKG.
[2022-08-06 05:44] LABS: Basophils # 0.1 10^3/uL (0.0-0.1); Basophils % 0.8 %; Eosinophils # 0.2 10^3/uL (0.0-0.8); Eosinophils % 2.4 %; Hematocrit 42.7 % (42.0-52.0); Hemoglobin 15.3 g/dL (11.7-16.6); Lymphocytes # 1.6 10^3/uL (0.8-4.8); Lymphocytes % 22.4 %; Mean Corpuscular HGB Conc 35.8 g/dL (30.0-36.0); Mean Corpuscular Volume 92.2 fl (80-94); Mean Platelet Volume 11.8 fL (7.4-10.4); Monocytes # 0.5 10^3/uL (0.2-0.9); Monocytes % 7.4 %; Neutrophils # 4.76 10^3/uL (1.8-7.7); Neutrophils % 66.6 %; Nucleated Red Blood Cells % 0 %; Platelet Count 134 10^3/cmm (130-400); Red Blood Count 4.63 10^6/uL (4.1-5.3); Red Cell Distribution Width 13.3 % (12.1-15.1); White Blood Count 7.2 10^3/uL (4.0-10.0)
--- NOTE | 2022-08-06 05:49 | ECG_ITS ---
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 Measurements Intervals Mouthcard Rate: 68 P: 47 OK: 144 QRS: -46 QRSD: 98 T: 32 QT: 398 QTc: 423 Interpretive Statements SINUS RHYTHM LEFT ANTERIOR FASCICULAR BLOCK [QRS AXIS <= -45, QR IN I, RS IN II] Compared to ECG 08/06/2022 02:20:50 No significant changes Electronically Signed On 08-06-2022 18:08:41 [employer] by Rohini Herrmann M.D. [id number]
[2022-08-06 06:02] LABS: Troponin 5 6HR 55.32 ng/L (0-15)
[2022-08-06 06:04] LABS: Troponin 5 6HR Delta -1.68 ng/L (0-12)
[2022-08-06 06:08] LABS: Anion Gap 14.7 (5-19); Blood Urea Nitrogen 19 mg/dL (6-20); Calcium 9.7 mg/dL (8.5-10.5); Carbon Dioxide 23 mmol/L (22-29); Chloride 102 mmol/L (98-107); Glucose 114 mg/dL (65-115); Osmolality Calculated 285 mOsm/kg (285-295); Potassium 3.7 mmol/L (3.5-5.1); Sodium 136 mmol/L (136-145)
[2022-08-06 06:22] LABS: Cholesterol 329 mg/dL (0-200); HDL Cholesterol 47 mg/dL (60-100); Thyroid Stimulating Hormone 36.27 uIU/mL (0.27-4.20); Triglycerides 402 mg/dL (0-150)
[2022-08-06 07:02] LABS: LDL Cholesterol Direct 223 mg/dL (0-100)
[2022-08-06] MEDS: sennosides-docusate Tablet 1 TAB PO (08:22)
[2022-08-06] MEDS: lisinopril 5 mg Tablet PO (08:22)
[2022-08-06] MEDS: aspirin 81 mg EC Tablet PO (08:22)
[2022-08-06] MEDS: levothyroxine 137 mcg Tablet PO (08:23)
[2022-08-06 09:11] LABS: Free T4 Free Thyroxine 0.55 ng/dL (0.82-1.77); T3 Free 1.7 PG/ML (2.0-4.4)
[2022-08-06] MEDS: ezetimibe 10 mg Tablet PO (09:27)
[2022-08-06] MEDS: escitalopram 10 mg Tablet 20 MG PO (09:27)
[2022-08-06] MEDS: pantoprazole DR 40 mg Tablet PO (09:43)
--- NOTE | 2022-08-06 11:16 | XACV_ITS ---
Exam Room: [facility] Ht: 180 cm Wt: 119 kg BSA: 2.48 m2 Gender: Male : 1970 Exam Priority: Routine Procedure(s): Procedure Description: Diagnostic procedure Procedure Description: PCI procedure Procedure Description: Coronary IVUS Procedure Description: Drug Eluting Coronary Stent Procedure Description: PTCA Procedure Description: Coronary Angiography Diagnostic Cath Status: Urgent Diagnostic Findings * Circumflex has no significant disease. * Left Main has no disease. * Proximal Left Anterior Descending: mild 40% stenosis, LYN: 3 flow. * Mid Right Coronary Artery: mild 40% stenosis, LYN: 3 flow. * First Obtuse Marginal Branch Segment: subtotal occlusion, LYN: 2 flow. * Coronary angiography shows co-dominance. PCI Status: Urgent PCI Indication: NSTE - ACS Interventional Findings * Procedure detail: Injury (artery with XB 3.5 guide catheter. IV heparin was administered, and an ACT above 250 yes. We advanced a 0.014 run-through guidewire into distal LAD. IVUS catheter was advanced to assess proximal LAD stenosis. No plaque rupture was noted. With then removed IVUS catheter and advanced the run-through wire into OM branch. IVUS was again performed to size the vessel. Thrombus was seen on IVUS. We predilated the stenosis with 3.0 x 12 mm semi-compliant balloon. This was followed with placement of 3.5 x 15 mm resolute Cody drug-eluting stent. Final angiogram was performed that showed excellent stent expansion, no residual stenosis and LYN-3 flow. At this time guidewire and guide catheter were removed. Using AL 0.75 guide catheter we performed IVUS of RCA that did not reveal significant thrombus formation there. Guidewire and guide catheter were removed. Patient left the Refrigeration Repair Supervisor in stable condition.. * First Obtuse Marginal Branch Segment: 99% stenosis treated with a AB TREK 3.00X12 RX BALLOON, and MDT R CODY 3.5X15 TRESSA. 0% residual stenosis, LYN: 3 flow. Conclusions 1. Subtotal thrombotic occlusion of 2. OM 3. 1 4. s/p successful revascularization with TRESSA x1.. 5. IVUS of LAD and RCA performed. No thrombus seen. 6. First Obtuse Marginal Branch Segment was treated with a Balloon, and Drug Eluting Stent. Recommendations * Transferred back to ICU. * Continue aspirin and Brilinta for at least 1 year. * High intensity statin therapy. * Outpatient cardiology follow-up in 4 weeks. Interventional RX Recommendation: PCI w/o planned CABG Diagnostic RX Recommendation: PCI w/o planned CABG Anticoagulation: Heparin Pressures Phase:Rest AO : 120 / 94 ( 108 ) @ 12:07:00 PM 123 / 101 ( 113 ) @ 12:10:00 PM 125 / 98 ( 111 ) @ 12:16:00 PM 124 / 85 ( 102 ) @ 12:32:00 PM 116 / 90 ( 103 ) @ 12:46:00 PM Clinical Evaluation EBL: 5mL-10mL Procedural Details Procedure Consent Obtained. Pre-Procedure Time Out. Identified patient by full name and date of as verbalized by the patient/guarantor. Does the consent match the physician's order: Yes. Accurate & Complete Informed Consent: Yes. Inpatient/Outpatient History & Physical on Chart: Yes. If H&P is completed, is and addenduem needed: N/A; If yes, is the addendum complete: N/A. Visualize and Verify Site with Patient/Guarantor: N/A. Relevant Radiology Images available: N/A. Pre-op teaching completed and patient verbalized understanding. The risks, benefits, and alternatives of sedation and/or procedure were discussed by physician. The patient agrees to continue. Procedure started. Admit Source: In Patient. IV Fluids: 0.9% NaCl at KVO. 500 mL infused prior to slab depiler operator. IV Site on Arrival: 18 gauge in the left anticubital. [facility] Clinical Fraility Score: 4: Vulnerable. Refrigeration Repair Supervisor Indications: Worsening Angina. Chest Pain Symptom Assessment: Typical Angina Symptoms. Cardiovascular Instability: No,. Correct patient, site and procedure confirmed by cath team. Current diagnosis: NSTEMI. PERRLA. Strong, equal hand sleeve setter bilaterally. Lungs clear x 5 lobes. Pre Procedural Pulses: bilateral radial was 2+. Pre Procedural Pulses: bilateral dorsalis pedis was 1+. Oxygen started at 2liters/min via nasal canula. right groin was prepped with chloroprep then draped in the usual sterile fashion. right radial was prepped with chloroprep then draped in the usual sterile fashion. Physician notified. Baseline sample Acquired. HR: 64 BPM. Physician arrived. Physician scrubbed in. Lidocaine 1% infiltrated to the right radial. Immediate Pre-Procedure Time Out. Correct Patient: Yes; Correct Procedure: Yes; Correct Site: Yes; Correct Patient Position: Yes; Correct Supplies: Yes; Dried Flammable Prep: Yes; Blood Products Available: Yes;. Arterial access obtained. A 5 [place] TIG catheter in over wire. Multiple views taken of left coronary artery. Catheter redirected to the RCA. Multiple views taken of right coronary artery. AP pads placed on pt. 6 [place] XB 3.5 guide catheter was inserted over the wire. Multiple views taken of left coronary artery. Runthrough guidewire was advanced through the guide catheter to lesion in the OM. ivus catheter inserted over the wire. ivus measurements obtained. ivus catheter out over the wire. ACT drawn. Results 278 seconds. Therapeutic limits - pre-heparin administration 90-150 seconds and monitoring heparin during a vascular procedure >250 seconds. Runthrough guidewire was advanced through the guide catheter to lesion in the OM. ivus catheter inserted. IVUS measurments obtained of the OM. ivus catheter out over the wire. Inflation number : 1 A AB TREK 3.00X12 RX BALLOON was prepped and advanced across the 1st Ob Phyllis , then inflated to 12 SEN for 0:10 seconds. Inflation number: 2 The AB TREK 3.00X12 RX BALLOON was reinflated across the 1st Ob Phyllis, to 12 SEN for 0:16 seconds. results checked. Balloon out. Inflation Number : 3 Rajinder Bettencourt CODY 3.5X15 TRESSA -Lot Number# [id number] exp date 07/21/2024 was prepped and advanced across the 1st Ob Phyllis. The stent was deployed at 12 SEN for 0:19 seconds. Results checked. IVUS catheter inserted over the wire. IVUS measurments obtained of the OM. ivus catheter outover the wire. angiography performed, checking results. runthrough wire out. ACT drawn. Results 291 seconds. Therapeutic limits - pre-heparin administration 90-150 seconds and monitoring heparin during a vascular procedure >250 seconds. guide catheter out over wire. 6 [place] JR 4 guide catheter was inserted over the wire. Runthrough guidewire was advanced through the guide catheter to lesion in the mid RCA. runthrough wire out. jr4 guide catheter out over exchange wire. 6 [place] AL 0.75 guide catheter was inserted over the wire. 2nd runthrough inserted to distal RCA over the wire. ivus catheter inserted over the wire. IVUS measurements obtained of the RCA. ivus catherter out. ACT drawn. Results 296 seconds. Therapeutic limits - pre-heparin administration 90-150 seconds and monitoring heparin during a vascular procedure >250 seconds. wires out. guide catheter out. A TR Band was unsuccessful obtaining hemostatsis at the Right Radial artery insertion site. Post Procedure: Pulses reassessed and unchanged. PERRLA. Strong, equal hand sleeve setter bilaterally. No VTE prophylaxis required. Medication's Wasted: Nitro = 49.8 mg. Total IV fluids: 88 mL. Complications: none. Estimated blood loss: 5mL-10mL. Responsiveness - Normal response to verbal stimuli; alert and oriented, PERRLA. Airway - Unaffected, no intervention required; spontaneous ventilation. Circulation: W/N/L, pulses unchanged. Nausea/Vomiting: No. PCI Indication: New Onset Angina. Post-op diagnosis: stent placement. Procedure completed. Patient transferred by wheelchair to ICU. Vital chart was stopped. Access Site Site: Right Radial artery Sheath Size: 6 Fr Hemostasis Method: TR Band Hemostasis Success: Unsuccessful Procedure Medications Start: 11:59 AM Stop: 11:59 AM Medication: Versed 1 mg and Fentanyl 25 mcg Route: I.V. Start: 12:01 PM Stop: 12:01 PM Medication: Nitrogylcerin Amount: 200 mcg Route: I.C. Start: 12:01 PM Stop: 12:01 PM Medication: Fentanyl Amount: 25 mcg Route: I.V. Start: 12:05 PM Stop: 12:05 PM Medication: Versed Amount: 1 mg Route: I.V. Start: 12:06 PM Stop: 12:06 PM Medication: Heparin Amount: 5000 units Route: I.V. Start: 12:13 PM Stop: 12:13 PM Medication: Heparin Amount: 5000 units Route: I.V. Start: 12:13 PM Stop: 12:13 PM Medication: Versed Amount: 1 mg Route: I.V. Start: 12:14 PM Stop: 12:14 PM Medication: Versed Amount: 1 mg Route: I.V. Start: 12:22 PM Stop: 12:22 PM Medication: Versed 1 mg and Fentanyl 25 mcg Amount: 1 Route: I.V. Start: 12:36 PM Stop: 12:36 PM Medication: Versed Amount: 1 mg Route: I.V. Start: 12:37 PM Stop: 12:37 PM Medication: Heparin Amount: 2000 units Route: I.V. Start: 12:38 PM Stop: 12:38 PM Medication: Heparin Amount: 2000 units Route: I.V. Start: 12:45 PM Stop: 12:45 PM Medication: Aggrastat 12.5 mg/250 mL Amount: 60 ml Route: I.V. bolus Start: 12:45 PM Stop: 12:45 PM Medication: Aggrastat 12.5 mg/250 mL Amount: 21.6 ml/hr Route: I.V. drip Start: 12:52 PM Stop: 12:52 PM Medication: Versed 1 mg and Fentanyl 25 mcg Amount: 1 Route: I.V. Start: 12:53 PM Stop: 12:53 PM Medication: Heparin Amount: 2000 units Route: I.V. Start: 12:55 PM Stop: 12:55 PM Medication: Fentanyl Amount: 25 mcg Route: I.V. Start: 1:00 PM Stop: 1:00 PM Medication: Brilinta Amount: 180 mg Route: P.O. I, the attending physician, have reviewed and verified all procedure medications. Yes, all medications given per verbal order History/Risk Factors Hypertension: Yes Dyslipidemia: Yes Peripheral Arterial Disease (PAD): No Myocardial Infarction (ME): No Obesity: No Renal Disease: No Tobacco Use: Never Prior Interventions PCI: No CABG: No Valve Surgery: No Report Signatures Finalized by Vazquez Hidalgo MD on 08/19/2022 06:12 PM
--- NOTE | 2022-08-06 11:53 | W.PM.OPSUD ---
Surgery/Procedure H&P Update DATE OF PROCEDURE: August 06, 2022 DATE H&P PERFORMED: 08/06/22 H&P UPDATE INFORMATION: I have reviewed H&P completed within last 30 days, I have examined patient prior to procedure and No changes to prior documentation PREOP DIAGNOSIS: Unstable angina PRIMARY INDICATION FOR PROCEDURE: Unstable angina PLANNED PROCEDURE: Left heart cath with possible percutaneous coronary intervention PATIENT REASSESSED PRIOR TO SEDATION, WITH NO CHANGE NOTED: Yes PHYSICAL EXAM: alert, oriented x 3, clear to auscultation bilaterally and regular rate & rhythm AIRWAY EVAL/ANESTHESIA PLAN: normal airway, ASA III, Local Anesthesia, Risks, benefits & alternatives of sedation and/or procedure discussed and Patient agrees to continue as planned (Moderate sedation)
--- NOTE | 2022-08-06 12:11 | PC.CHAP ---
Pastoral Care Encounter/Spiritual Assessment Type of Contact [] Declined network support engineer visit [] Patient/Family/Request visit [] Outpatient visit [] Follow-up visit [] Physician referral [] Code/Alert [x] Routine visit [] Staff referral [] Actively dying [] Patient sleeping [x] Family support [] [] Out of room [] Palliative care [] [] Receiving care in room [] Pre-surgical visit [] Trauma [] Long length of stay [x] ICU visit [x] Other: PT feeling stronger today.. lots of family support present Relational/Emotional Strength [] Patient feels connected with others/family/visitors/staff [] Distress [] Loneliness/isolation [] Abandonment Spirituality of Patient [] Person of [place] [] Attends Yazdanism of their [place] [] Believes in Prayer [] Reads Bible or Lutheran materials [] There are Spiritual issues to be addressed Dolphin Trainer Interventions [x] Prayer [] Active listening [] Non-anxious presence [] Spiritual/emotional support [] Crisis/trauma care [] Spiritual counseling [] Bereavement support [] Provided bereavement packet [] Provided Bible/devotional materials [] Provided toy/stuffed animal, coloring book to patient or family member [] Provided Communion [] Anointing/[place] [] Salvation [x] Completed spiritual assessment [] Other: Impact on Illness or Injury [] Angry [] Fearful [] Anxious [] Often cries [] Exhaustion [] Unable to work [] Unable to attend shinto [] Unable to walk/stand [] Unable to read [] Unable to drive [] Unable to eat/drink [] Unable to sleep [] Unable to be with family [] Patient intubated [] Other: Summary Time spent with patient
--- NOTE | 2022-08-06 12:17 | PM.CONSULT ---
Providers/Reason For Consult Consulting Physician/Specialty*: SOTO Ramirez MD/cardiology Reason for Consult*: Patient with chest pain and elevated troponin T Attending Physician: Fran Mauricio MD Primary Care Provider: Shukri Palmer MD History of Present Illness History of Present Illness Darin Mederos is a 52 year old male with a history of hypertension, dyslipidemia and CVA, is admitted to the hospital through the emergency room very present with complaints of chest pain for 2 days. Patient apparently has been in his baseline state of health up until last Friday when he started having chest pain while he was driving home. The pain was mild intensity. It might have lasted for a couple of hours and then gradually subsided. On Friday morning, he started having chest pain again. The pain was radiating down to both arms and also to the jaws. Intensity of the pain was 5-6. It has been waxing and waning throughout the day. He tried some Rolaids and other antacids which may give him some relief. Apparently went to bed with the pain. He was not able to sleep through the night. Friday he went to work with the pain. At the workplace, the pain was waxing and waning. With activities, the pain was getting worse. As he came home, the pain started getting worse again. Because of the worsening symptoms, he came to the emergency room last night. He was given sublingual nitro which apparently dropped his blood pressure too low. He responded to morphine. His initial troponin T was in the 50s. The troponin T's appear to be trending down. He has been having mild chest pain off and on through the night. This morning, he was started on IV nitro. The blood pressure again started dropping. For that reason, he was given morphine which almost relieved the pain completely. At the time of my examination, patient is almost asymptomatic. He may have a vague feeling in the chest but no real chest pain. Year ago, he was in the hospital with cute onset of some visual disturbances. 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 Subsequently he was transferred to [facility] in [place]. Details of this hospital admission is no known. No history for smoking abuse or alcohol abuse. Paternal grandfather had a myocardial infarction in his 50s. Heart murmurs in the family. No other relevant family history Review of Systems Narrative: CONSTITUTIONAL: No fever or chills. EYES: No blurring of vision or other visual disturbances lately. ENT: No hoarseness of voice, auditory disturbances or sore throat. CARDIOVASCULAR: As mentioned above. RESPIRATORY: No significant cough. GASTROINTESTINAL: No hematemesis or melena. GENITOURINARY: No dysuria or hematuria. INTEGUMENTARY: No skin rashes or history of skin cancer. NEURO: No transient ischemic attacks or amaurosis. PSYCHIATRIC: No history of psychosis or major depression. HEMATOLOGIC: No bleeding disorders or significant anemia. ENDOCRINE: No history of polyuria or polydipsia. MUSCULOSKELETAL: No recent joint pain or swelling. ALLERGY/IMMUNOLOGY: As mentioned above. Medications/Allergies Home Medications Medication Instructions Recorded Confirmed Last Taken Type escitalopram oxalate 20 mg tablet 20 mg PO DAILY 09/02/21 08/06/22 1 Day Ago History ~08/05/22 atorvastatin 40 mg tablet 80 mg PO BEDTIME #60 tabs 09/03/21 08/06/22 Unknown Rx lisinopril 5 mg tablet 5 mg PO DAILY #30 tabs 09/03/21 08/06/22 1 Day Ago Rx ~08/05/22 aspirin 325 mg tablet 325 mg PO DAILY 08/06/22 08/06/22 1 Day Ago History ~08/05/22 levothyroxine 125 mcg tablet 125 mcg PO DAILY 08/06/22 08/06/22 1 Day Ago History ~08/05/22 Allergies Allergy/AdvReac Type Severity Reaction Status Date / Time No Known Allergies Allergy Verified 09/01/21 19:39 Current Medications Generic Name Dose Route Start Last Admin Trade Name Ludy PRN Reason Stop Dose Admin Aspirin 81 mg 08/06/22 09:00 08/06/22 08:22 Aspirin 81 Mg Ec Tablet PO 81 mg DAILY CHIARA Administration Ezetimibe 10 mg 08/06/22 09:00 08/06/22 09:27 Ezetimibe 10 Mg Tablet PO 10 mg DAILY CHIARA Administration Escitalopram Oxalate 20 mg 08/06/22 09:00 08/06/22 09:27 Escitalopram 10 Mg Tablet PO 20 mg DAILY CHIARA Administration Sodium Chloride 1,000 mls @ 75 mls/hr 08/06/22 03:00 08/06/22 04:25 Sodium Chloride 0.9% IV 75 mls/hr .[id number] CHIARA Administration Lisinopril 5 mg 08/06/22 09:00 08/06/22 08:22 Lisinopril 5 Mg Tablet PO 5 mg DAILY CHIARA Administration Morphine Sulfate 2 mg 08/06/22 05:43 08/06/22 05:54 Morphine 4 Mg/Ml Sdv 1 Ml IVP 2 mg Q2H PRN Administration SEVERE PAIN Ondansetron HCl 4 mg 08/06/22 02:42 08/06/22 04:10 Ondansetron 2 Mg/Ml Sdv 2 Ml IVP 4 mg Q6H PRN Administration NAUSEA AND VOMITING Pantoprazole Sodium 40 mg 08/06/22 09:40 08/06/22 09:[address] 40 Mg Tablet PO 40 mg DAILY CHIARA Administration Senna/Docusate Sodium 1 tab 08/06/22 09:00 08/06/22 08:22 Sennosides-Docusate Tablet PO 1 tab DAILY CHIARA Administration PFSH Acute PFSH: Medical History Acute cerebrovascular accident (CVA) Hyperlipidemia Hypertension No pertinent family history Surgical History History of orthopedic surgery Family History Denies family history of CAD (coronary artery disease) Social History Smoking and tobacco status: never smoked Alcohol intake: current Vitals/I&O/Wt Last Vital Signs Temp 97.7 F 08/06/22 04:15 Pulse 65 08/06/22 10:55 Resp 20 H 08/06/22 10:55 BP 150/110 08/06/22 10:55 Pulse Ox 93 08/06/22 10:55 O2 Del Method 08/06/22 08:43 08/05/22 08/06/22 08/06/22 22:59 06:59 14:59 Intake Total 4.225 / 4.225 0 / 0 Balance 4.225 / 4.225 0 / 0 Weight last 48 hrs Weight 262 lb Physical Exam Narrative: GENERAL: The patient is alert and oriented times three. Not in any acute distress. HEENT: No significant pallor, icterus or lymphadenopathy.Oral cavity: There are no mucous membrane lesions. NECK: Trachea appears to be central. No masses noted. No JVD or thyromegaly appreciated. RESPIRATORY: Chest is symmetrical. No intercostals muscle retraction or any accessory muscle activation. There is no chest wall tenderness. Breath sounds are heard bilaterally. No rales or rhonchi heard. No evidence of any consolidation. BREASTS: Deferred. HEART: The heart sounds are normal. No S3 or S4. No significant murmurs. No pericardial rub ABDOMEN: No vessel pulsations or distention. No tenderness. No organomegaly appreciated. Bowel sounds are normally heard. : Deferred. RECTAL: Deferred. LYMPHATIC: No lymphadenopathy noted in the neck. EXTREMITIES: No edema or cyanosis. No clubbing. MUSCULOSKELETAL: No acute joint deformities or swelling SKIN: There are no significant rashes or ecchymosis NEUROPSYCHIATRIC: The patient is alert and oriented x3. Appears to be in a good mood. No tremors or rigidity noted. Data 08/06/22 05:30 08/06/22 05:30 Micro: Laboratory Last Values WBC 7.2 10^3/uL (4.0-10.0) 08/06/22 05:30 RBC 4.63 10^6/uL (4.1-5.3) 08/06/22 05:30 Hgb 15.3 g/dL (11.7-16.6) 08/06/22 05:30 Hct 42.7 % (42.0-52.0) 08/06/22 05:30 MCV 92.2 fl (80-94) 08/06/22 05:30 MCH 33.0 pg (28.0-34.0) 08/06/22 05:30 MCHC 35.8 g/dL (30.0-36.0) 08/06/22 05:30 RDW 13.3 % (12.1-15.1) 08/06/22 05:30 Plt Count 134 10^3/cmm (130-400) 08/06/22 05:30 MPV 11.8 fL (7.4-10.4) H 08/06/22 05:30 Neut % (Auto) 66.6 % 08/06/22 05:30 Lymph % (Auto) 22.4 % 08/06/22 05:30 [place] % (Auto) 7.4 % 08/06/22 05:30 Eos % (Auto) 2.4 % 08/06/22 05:30 Baso % (Auto) 0.8 % 08/06/22 05:30 Neut # (Auto) 4.76 10^3/uL (1.8-7.7) 08/06/22 05:30 Lymph # (Auto) 1.6 10^3/uL (0.8-4.8) 08/06/22 05:30 Vigo # (Auto) 0.5 10^3/uL (0.2-0.9) 08/06/22 05:30 Eos # (Auto) 0.2 10^3/uL (0.0-0.8) 08/06/22 05:30 Baso # (Auto) 0.1 10^3/uL (0.0-0.1) 08/06/22 05:30 Nucleated RBC % (auto) 0 % 08/06/22 05:30 Nucleated RBCs # 0.0 /100WBC 08/06/22 05:30 D-Dimer 0.37 ug/mIFEU (0-0.59) 08/06/22 00:40 Sodium 136 mmol/L (136-145) 08/06/22 05:30 Potassium 3.7 mmol/L (3.5-5.1) 08/06/22 05:30 Chloride 102 mmol/L (98-107) 08/06/22 05:30 Carbon Dioxide 23 mmol/L (22-29) 08/06/22 05:30 Anion Gap 14.7 (5-19) 08/06/22 05:30 BUN 19 mg/dL (6-20) 08/06/22 05:30 Creatinine 0.9 mg/dL (0.7-1.2) 08/06/22 05:30 GFR Calculation 89.0 mL/min (90-130) L 08/06/22 05:30 Glucose 114 mg/dL (65-115) 08/06/22 05:30 Calculated Osmolality 285 mOsm/kg (285-295) 08/06/22 05:30 Calcium 9.7 mg/dL (8.5-10.5) 08/06/22 05:30 Magnesium 2.0 mg/dL (1.7-2.3) 08/06/22 05:30 Total Bilirubin 0.3 mg/dL (0.15-1.2) 08/06/22 00:40 AST 27 U/L (0-40) 08/06/22 00:40 ALT 28 U/L (0-41) 08/06/22 00:40 Alkaline Phosphatase 95 U/L (40-130) 08/06/22 00:40 Troponin T Baseline 57 ng/L (0-15) H 08/06/22 00:40 Troponin T 120 Minute 56.66 ng/L (0-15) H 08/06/22 02:19 Delta Troponin T -0.34 ABS# (0-10) L 08/06/22 02:19 Troponin T Hi Sens 6Hr 55.32 ng/L (0-15) H 08/06/22 05:30 Troponin T Hi Sens 6Hr Delta -1.68 ng/L (0-12) L 08/06/22 05:30 NT-Pro-B Natriuret Pep 85 pg/mL (0-125) 08/06/22 00:40 Total Protein 7.1 g/dL (6.6-8.7) 08/06/22 00:40 Albumin 4.5 g/dL (3.5-5.2) 08/06/22 00:40 Globulin 2.6 g/dL (1.3-4.6) 08/06/22 00:40 Triglycerides 402 mg/dL (0-150) H 08/06/22 05:30 Cholesterol 329 mg/dL (0-200) H 08/06/22 05:30 LDL Cholesterol Direct 223 mg/dL (0-100) H 08/06/22 05:30 LDL Cholesterol, Calc Not Reportable 08/06/22 05:30 HDL Cholesterol 47 mg/dL (60-100) L 08/06/22 05:30 LDL/HDL Ratio Not Reportable 08/06/22 05:30 Cholesterol/HDL Ratio 7.00 mg/dL (1.0-5.00) H 08/06/22 05:30 Lipase 42 U/L (13-60) 08/06/22 00:40 TSH 36.27 uIU/mL (0.27-4.20) H 08/06/22 05:30 Free T4 0.55 ng/dL (0.82-1.77) L 08/06/22 04:57 Free T3 1.7 PG/ML (2.0-4.4) L 08/06/22 04:57 EKG 1: My Interpretation: Normal sinus rhythm with a rate of 68 bpm. Possible left atrial lodgment. Left anterior fascicular block. No acute ST-T changes. Normal KS and QRS duration. EKG computer-generated impression: Chest X-Ray 08/06/22 00:00 IMPRESSION: Low lung volumes versus mild pulmonary congestion. A&P Assessment and plan (1) Unstable angina: Patient's clinical features are consistent with unstable angina, complicated with a non-ST relation myocardial infarction. His EKG is unremarkable. I agree with the subcu Lovenox, p.o. Plavix, aspirin, beta-nils and a statin drug. Echocardiogram would be helpful to evaluate LV function and rule out any other pathology. (2) Non-ST elevation [place] (NSTEMI): Patient's troponin T is trending downwards. Most likely had the myocardial infarction yesterday and is currently having postinfarction angina. He will be closely monitored on telemetry. Because of his hypotensive episodes with the nitro, we may avoid it. We will be treating with beta-blockers or calcium blockers. (3) Accelerated hypertension: I may start him on amlodipine 5 mg p.o. now and daily. Patient has no clinical evidence of any endorgan damage. (4) Dyslipidemia: Continue on the current medications. (5) Hypothyroidism (acquired): Continue on the current medications. (6) Pituitary macroadenoma: Management as per the endocrinology Plan In view of the patient's symptoms and multiple risk factors, he requires a cardiac catheterization to further evaluate the coronary status and decide on further management. The risk of bleeding, hematoma, vascular injury, myocardial infarction, myocardial perforation, malignant cardiac arrhythmias ,CVA, renal failure and other concomitant complications were explained in detail. Patient understood this well and consented to proceed. Based on the the clinical progress, further recommendations will be made. Thank you for the opportunity to eval this patient and make these recommendations Consult Attestations Medical Necessity Statement: Patient requires continued hospital stay for close monitoring and further management Coding Level of Care Code Acute [facility] for [facility] Fwd History Detailed Exam Detailed Medical Decision Making High Complexity Diagnoses Unstable angina I20.0 Non-ST elevation OH (NSTEMI) I21.4 Accelerated hypertension I10 Dyslipidemia E78.5 Hypothyroidism (acquired) E03.9 Pituitary macroadenoma D35.2
[2022-08-06] MEDS: acetaminophen 325 mg Tablet 650 MG PO (16:35)
--- NOTE | 2022-08-06 16:55 | PC.NURSE ---
Patient arrived back from botany laboratory assistant. Aggrastat off at 1645. TR band still in place. Patient doing well. 1 stent placed in OM per botany laboratory assistant.
[2022-08-06 17:33] LABS: Folate Level 10.3 ng/mL (4.5-32.2); Iron 116 ug/dL (59-158); Percent Saturation 34.1 % (20-50); Total Iron Binding Capacity 340 mcg/dl; Unsaturated Iron Binding 224 ug/dL (112-347); Vitamin B12 455 pg/mL (232-1245)
[2022-08-06] MEDS: ticagrelor 90 mg Tablet PO (17:36)
--- NOTE | 2022-08-06 17:46 | CTR_ITS ---
PROCEDURE INFORMATION: Exam: CT Head Without Contrast Exam date and time: 08/06/2022 5:58 PM Age: 52 years old Clinical indication: Altered mental status/memory loss; Additional info: Confusion unable to follow commands TECHNIQUE: Imaging protocol: Computed tomography of the head without contrast. Radiation optimization: All CT scans at this facility use at least one of these dose optimization techniques: automated exposure control; mA and/or kV adjustment per patient size (includes targeted exams where dose is matched to clinical indication); or iterative reconstruction. COMPARISON: MR head wo/w con [id number] 09/01/2021 11:48 PM RADIATION DOSE METRICS: Total DLP (mGy-cm): 2549.41 FINDINGS: Brain: Normal. No hemorrhage or evidence of acute infarction. No mass effect. Cerebral ventricles: No ventriculomegaly. Paranasal sinuses: Visualized sinuses are unremarkable. No fluid levels. Mastoid air cells: Visualized mastoid air cells are well aerated. Bones/joints: Unremarkable. No acute fracture. Soft tissues: Unremarkable. CT/CT head wo con* [id number] IMPRESSION: No acute intracranial abnormality.
[2022-08-06] MEDS: nitroglycerin 1 gm/inch oint Pkt 0.5 INCH TOPICAL (18:22)
[2022-08-06 18:37] LABS: Glucose Point of Care 113 mg/dL (70-110)
--- NOTE | 2022-08-06 18:40 | PC.NURSE ---
Patient very confused after procedure in [employer], mixing up words and unable to voice concerns. Called Dr. Whitfield and CT w/o contrast ordered to rule out hemorrhage. Report reads clear. Dr. Mauricio aware ordered labs
[2022-08-06 19:19] LABS: Alanine Aminotransferase 28 U/L (0-41); Albumin Level 4.5 g/dL (3.5-5.2); Alkaline Phosphatase 96 U/L (40-130); Anion Gap 14.6 (5-19); Aspartate Amino Transferase 36 U/L (0-40); Blood Urea Nitrogen 15 mg/dL (6-20); Calcium 9.4 mg/dL (8.5-10.5); Carbon Dioxide 26 mmol/L (22-29); Chloride 99 mmol/L (98-107); Globulin 2.7 g/dL (1.3-4.6); Glomerular Filtration Rate 78.8 mL/min (90-130); Glucose 117 mg/dL (65-115); Osmolality Calculated 284 mOsm/kg (285-295); Potassium 3.6 mmol/L (3.5-5.1); Sodium 136 mmol/L (136-145); Total Bilirubin 0.6 mg/dL (0.15-1.2); Total Protein 7.2 g/dL (6.6-8.7)
[2022-08-06 19:20] LABS: Ammonia 13 umol/L (16-60)
--- NOTE | 2022-08-06 20:00 | PC.NURSE ---
Pt is confused, unable correctly answer any orientation questions correctly, trying to get out of bed and leave, and unable to communicate to this RN or family what he needs. BP's have been increased, Current BP is 199/128. Dr. Amaya called twice, no answer. Leaving TR band on at this point because pt is unable to follow R. arm restrictions.
[2022-08-06] MEDS: nicardipine 20 MG/200 ML PREMIX 50 MG IV (20:30)
--- NOTE | 2022-08-06 20:34 | PC.NURSE ---
Addendum entered by Veronica Kaiser RN 08/06/22 20:37: Refer to aggression rating tool on worklist. Original Note: Pt continues to be confused. Pts agitation level has increased. New order to start Nicardipine for BP. Pt expresses that he needs to urinate but is unable to, new order to bladder scan and insert Elder catheter if there is retaining. Dr. Amaya in unit to see pt and speak w/ family.
--- NOTE | 2022-08-06 20:49 | PC.NURSE ---
pt urinated 400ml via BSC, unable to bladder scan pt at this time, pt refusing.
--- NOTE | 2022-08-06 20:56 | PC.NURSE ---
Nonadmin Atorvastatin 80 mg PO for 2100, pt is agitated, unable to safely take PO meds at this time.
[2022-08-06 21:08] LABS: Cortisol Random 28.36 ug/dL (2.47-19.5)
[2022-08-06] MEDS: TRAMadol 50 mg Tablet PO (21:46)
--- NOTE | 2022-08-06 22:18 | PC.NURSE ---
Pt voided 300ml in BSC, still unable to bladder scan pt, pt is unable to follow commands or correctly answer all orientation questions at this time. Family is at bedside, bed alarm on, family aware of pts fall risk, door left open, lights and TV turned off to reduce environmental stimuli.
[2022-08-06 22:41] LABS: Add Urine Microscopic? NO; Charge for UA Resulting for Rev
--- NOTE | 2022-08-06 22:49 | PC.NURSE ---
Nicardipine paused @6147, bag is empty, [facility] is out of med, pharmacy called. Will resume when pharmacy delivers med.
[2022-08-06 22:58] LABS: Bilirubin Urine Neg (Negative); Blood Urine Neg (Negative); Glucose Urine UA Norm (Normal); Ketones Urine Negative (Negative); Leukocyte Esterase Urine Negative (Negative); Nitrate Urine Negative (Negative); Protein Urine Neg (Negative); Sulfosalicylic Acid Urine Negative (Negative); Urine Appearance Clear (CLEAR); Urine Color Yellow (Yellow); Urobilinogen Urine Norm (Negative); pH Urine 9 (5-7)
[2022-08-06] MEDS: nicardipine 20 MG/200 ML PREMIX 75 MG IV (23:00)
--- NOTE | 2022-08-06 23:02 | PC.NURSE ---
2/3ml of air were removed from the R. radial TR band every 15 minutes until the balloon was empty. TR band was removed @2300 and a pressure dressing was applied. R. radial pulse is palpable and color in the extremity is good. Dressing is clean and dry @ this time.
[2022-08-07] VITALS (27 sets, daily range): BP systolic 105–143; BP diastolic 63–96; PULSE 66–107; RESP 10–23; O2SAT 90–95
[2022-08-07] MEDS: enoxaparin 120 mg/0.8 mL Syringe SUBCUT (02:14)
[2022-08-07 02:52] LABS: Basophils % 0.2 %; Hematocrit 43.7 % (42.0-52.0); Hemoglobin 15.4 g/dL (11.7-16.6); Lymphocytes # 0.8 10^3/uL (0.8-4.8); Lymphocytes % 6.3 %; Mean Corpuscular HGB Conc 35.2 g/dL (30.0-36.0); Mean Corpuscular Hemoglobin 32.7 pg (28.0-34.0); Mean Corpuscular Volume 92.8 fl (80-94); Mean Platelet Volume 11.9 fL (7.4-10.4); Monocytes # 0.6 10^3/uL (0.2-0.9); Monocytes % 4.7 %; Neutrophils # 11.33 10^3/uL (1.8-7.7); Neutrophils % 88.3 %; Nucleated Red Blood Cells % 0 %; Platelet Count 151 10^3/cmm (130-400); Red Blood Count 4.71 10^6/uL (4.1-5.3); Red Cell Distribution Width 13.5 % (12.1-15.1); White Blood Count 12.9 10^3/uL (4.0-10.0)
[2022-08-07 03:09] LABS: Estmated Average Glucose 91; Hemoglobin A1C 4.8 % (4.0-6.0)
[2022-08-07 03:15] LABS: Alanine Aminotransferase 31 U/L (0-41); Albumin Level 4.8 g/dL (3.5-5.2); Alkaline Phosphatase 96 U/L (40-130); Anion Gap 16.9 (5-19); Aspartate Amino Transferase 39 U/L (0-40); Blood Urea Nitrogen 14 mg/dL (6-20); Calcium 9.6 mg/dL (8.5-10.5); Carbon Dioxide 23 mmol/L (22-29); Chloride 97 mmol/L (98-107); Chol HDL Ratio 6.82 mg/dL (1.0-5.00); Cholesterol 334 mg/dL (0-200); Globulin 2.8 g/dL (1.3-4.6); Glomerular Filtration Rate 70.6 mL/min (90-130); Glucose 129 mg/dL (65-115); HDL Cholesterol 49 mg/dL (60-100); LDL Cholesterol Calculated 214 mg/dL (50-129); Osmolality Calculated 278 mOsm/kg (285-295); Potassium 3.9 mmol/L (3.5-5.1); Sodium 133 mmol/L (136-145); Total Bilirubin 0.5 mg/dL (0.15-1.2); Total Protein 7.6 g/dL (6.6-8.7); Triglycerides 355 mg/dL (0-150); VLDL Cholestrol Calculation 71 mg/dL (0-30)
[2022-08-07] MEDS: lisinopril 5 mg Tablet PO (09:00)
[2022-08-07] MEDS: aspirin 81 mg EC Tablet PO (09:00)
[2022-08-07] MEDS: levothyroxine 150 mcg Tablet PO (09:00)
[2022-08-07] MEDS: pantoprazole DR 40 mg Tablet PO (09:01)
[2022-08-07] MEDS: ezetimibe 10 mg Tablet PO (09:01)
[2022-08-07] MEDS: escitalopram 10 mg Tablet 20 MG PO (09:01)
[2022-08-07] MEDS: sennosides-docusate Tablet 1 TAB PO (09:01)
[2022-08-07] MEDS: ticagrelor 90 mg Tablet PO (09:01)
--- NOTE | 2022-08-07 09:07 | P.PN_ITS ---
Subjective Subjective: Patient is feeling okay. Apparently was very drowsy last night. He is awake and oriented this morning. Denies any chest pain. Medications: Medication Review Details: Current Medications Acetaminophen (Acetaminophen 325 Mg Tablet) 650 mg PO Q6H PRN PRN Reason: fever Last Admin: 08/06/22 16:35 Dose: 650 mg Albuterol/Ipratropium (Ipratropium-Albuterol 3 Ml Neb) 3 ml INHALATION Q6H PRN PRN Reason: SHORTNESS OF BREATH Aspirin (Aspirin 81 Mg Ec Tablet) 81 mg PO DAILY [facility] Last Admin: 08/07/22 09:00 Dose: 81 mg Atorvastatin Calcium (Atorvastatin 40 Mg Tablet) 80 mg PO BEDTIME [facility] Last Admin: 08/06/22 20:55 Dose: Not Given Ezetimibe (Ezetimibe 10 Mg Tablet) 10 mg PO DAILY [facility] Last Admin: 08/07/22 09:01 Dose: 10 mg Enoxaparin Sodium (Enoxaparin 120 Mg/0.8 Ml Syringe) 120 mg SUBCUT Q12H [facility] Last Admin: 08/07/22 02:14 Dose: 120 mg Escitalopram Oxalate (Escitalopram 10 Mg Tablet) 20 mg PO DAILY [facility] Last Admin: 08/07/22 09:01 Dose: 20 mg Nicardipine/Sodium Chloride (Cardene) 20 mg in 200 mls @ 0 mls/hr IV .Q0M [facility]; Protocol Last Titration: 08/07/22 02:20 Dose: 0 mg/hr, 0 mls/hr Levothyroxine Sodium (Levothyroxine 150 Mcg Tablet) 150 mcg PO DAILY [facility] Last Admin: 08/07/22 09:00 Dose: 150 mcg Lisinopril (Lisinopril 5 Mg Tablet) 5 mg PO DAILY [facility] Last Admin: 08/07/22 09:00 Dose: 5 mg Morphine Sulfate (Morphine 4 Mg/Ml Sdv 1 Ml) 2 mg IVP Q2H PRN PRN Reason: SEVERE PAIN Last Admin: 08/06/22 05:54 Dose: 2 mg Nitroglycerin (Nitroglycerin 1 Gm/Inch Oint Pkt) 0.5 inch TOPICAL Q6H PRN PRN Reason: CHEST PAIN Last Admin: 08/06/22 18:22 Dose: 0.5 inch Ondansetron HCl (Ondansetron 2 Mg/Ml Sdv 2 Ml) 4 mg IVP Q6H PRN PRN Reason: NAUSEA AND VOMITING Last Admin: 08/06/22 17:36 Dose: 4 mg Pantoprazole Sodium (Pantoprazole Dr 40 Mg Tablet) 40 mg PO DAILY [facility] Last Admin: 08/07/22 09:01 Dose: 40 mg Senna/Docusate Sodium (Sennosides-Docusate Tablet) 1 tab PO DAILY [facility] Last Admin: 08/07/22 09:01 Dose: 1 tab Ticagrelor (Ticagrelor 90 Mg Tablet) 90 mg PO BID [facility] Last Admin: 08/07/22 09:01 Dose: 90 mg Tramadol HCl (Tramadol 50 Mg Tablet) 50 mg PO Q4H PRN PRN Reason: MODERATE PAIN Last Admin: 08/06/22 21:46 Dose: 50 mg Vitals/I&O/Wt Last Vital Signs Temp 99.0 F 08/06/22 22:34 Pulse 81 08/07/22 06:00 Resp 14 08/07/22 04:45 BP 106/76 08/07/22 05:00 Pulse Ox 91 08/07/22 05:00 O2 Del Method 08/07/22 05:00 08/06/22 08/07/22 08/07/22 22:59 06:59 14:59 Intake Total 1058.750 / 1058.750 606.667 / 1665.417 Output Total 700 / 700 400 / 1100 Balance 358.750 / 358.750 206.667 / 565.417 Weight last 48 hrs Weight 262 lb 4.8 oz Weight 262 lb Physical Exam Narrative: GENERAL: The patient is alert and oriented times three. Not in any acute distress. Slightly drowsy HEENT: No significant pallor, icterus or lymphadenopathy.Oral cavity: There are no mucous membrane lesions. NECK: Trachea appears to be central. No masses noted. No JVD or thyromegaly appreciated. RESPIRATORY: Chest is symmetrical. No intercostals muscle retraction or any accessory muscle activation. There is no chest wall tenderness. Breath sounds are heard bilaterally. No rales or rhonchi heard. No evidence of any consolidation. BREASTS: Deferred. HEART: The heart sounds are normal. No S3 or S4. No significant murmurs. No pericardial rub ABDOMEN: No vessel pulsations or distention. No tenderness. No organomegaly appreciated. Bowel sounds are normally heard. : Deferred. RECTAL: Deferred. LYMPHATIC: No lymphadenopathy noted in the neck. EXTREMITIES: No edema or cyanosis. No clubbing. No hematoma bleeding of the arterial puncture site MUSCULOSKELETAL: No acute joint deformities or swelling SKIN: There are no significant rashes or ecchymosis NEUROPSYCHIATRIC: The patient is alert and oriented x3. Appears to be in a good mood. No tremors or rigidity noted. Data 08/07/22 02:19 08/07/22 02:19 Micro: Laboratory Last Values WBC 12.9 10^3/uL (4.0-10.0) H 08/07/22 02:19 RBC 4.71 10^6/uL (4.1-5.3) 08/07/22 02:19 Hgb 15.4 g/dL (11.7-16.6) 08/07/22 02:19 Hct 43.7 % (42.0-52.0) 08/07/22 02:19 MCV 92.8 fl (80-94) 08/07/22 02:19 MCH 32.7 pg (28.0-34.0) 08/07/22 02:19 MCHC 35.2 g/dL (30.0-36.0) 08/07/22 02:19 RDW 13.5 % (12.1-15.1) 08/07/22 02:19 Plt Count 151 10^3/cmm (130-400) 08/07/22 02:19 MPV 11.9 fL (7.4-10.4) H 08/07/22 02:19 Neut % (Auto) 88.3 % 08/07/22 02:19 Lymph % (Auto) 6.3 % 08/07/22 02:19 [place] % (Auto) 4.7 % 08/07/22 02:19 Eos % (Auto) 0.0 % 08/07/22 02:19 Baso % (Auto) 0.2 % 08/07/22 02:19 Neut # (Auto) 11.33 10^3/uL (1.8-7.7) H 08/07/22 02:19 Lymph # (Auto) 0.8 10^3/uL (0.8-4.8) 08/07/22 02:19 [place] # (Auto) 0.6 10^3/uL (0.2-0.9) 08/07/22 02:19 Eos # (Auto) 0.0 10^3/uL (0.0-0.8) 08/07/22 02:19 Baso # (Auto) 0.0 10^3/uL (0.0-0.1) 08/07/22 02:19 Nucleated RBC % (auto) 0 % 08/07/22 02:19 Nucleated RBCs # 0.0 /100WBC 08/07/22 02:19 D-Dimer 0.37 ug/mIFEU (0-0.59) 08/06/22 00:40 Sodium 133 mmol/L (136-145) L 08/07/22 02:19 Potassium 3.9 mmol/L (3.5-5.1) 08/07/22 02:19 Chloride 97 mmol/L (98-107) L 08/07/22 02:19 Carbon Dioxide 23 mmol/L (22-29) 08/07/22 02:19 Anion Gap 16.9 (5-19) 08/07/22 02:19 BUN 14 mg/dL (6-20) 08/07/22 02:19 Creatinine 1.1 mg/dL (0.7-1.2) 08/07/22 02:19 GFR Calculation 70.6 mL/min (90-130) L 08/07/22 02:19 Glucose 129 mg/dL (65-115) H 08/07/22 02:19 POC Glucose 113 mg/dL (70-110) H 08/06/22 18:33 Estimat Average Glucose 91 08/07/22 02:19 Hemoglobin A1c 4.8 % (4.0-6.0) 08/07/22 02:19 Calculated Osmolality 278 mOsm/kg (285-295) L 08/07/22 02:19 Calcium 9.6 mg/dL (8.5-10.5) 08/07/22 02:19 Magnesium 2.0 mg/dL (1.7-2.3) 08/06/22 05:30 Iron 116 ug/dL (59-158) 08/06/22 15:40 TIBC 340 mcg/dl 08/06/22 15:40 % Saturation 34.1 % (20-50) 08/06/22 15:40 Unsat Iron Binding 224 ug/dL (112-347) 08/06/22 15:40 Total Bilirubin 0.5 mg/dL (0.15-1.2) 08/07/22 02:19 AST 39 U/L (0-40) 08/07/22 02:19 ALT 31 U/L (0-41) 08/07/22 02:19 Alkaline Phosphatase 96 U/L (40-130) 08/07/22 02:19 Ammonia 13 umol/L (16-60) L 08/06/22 18:53 Troponin T Baseline 57 ng/L (0-15) H 08/06/22 00:40 Troponin T 120 Minute 56.66 ng/L (0-15) H 08/06/22 02:19 Delta Troponin T -0.34 ABS# (0-10) L 08/06/22 02:19 Troponin T Hi Sens 6Hr 55.32 ng/L (0-15) H 08/06/22 05:30 Troponin T Hi Sens 6Hr Delta -1.68 ng/L (0-12) L 08/06/22 05:30 NT-Pro-B Natriuret Pep 85 pg/mL (0-125) 08/06/22 00:40 Total Protein 7.6 g/dL (6.6-8.7) 08/07/22 02:19 Albumin 4.8 g/dL (3.5-5.2) 08/07/22 02:19 Globulin 2.8 g/dL (1.3-4.6) 08/07/22 02:19 Triglycerides 355 mg/dL (0-150) H 08/07/22 02:19 Cholesterol 334 mg/dL (0-200) H 08/07/22 02:19 LDL Cholesterol Direct 223 mg/dL (0-100) H 08/06/22 05:30 LDL Cholesterol, Calc 214 mg/dL (50-129) H 08/07/22 02:19 Total VLDL Cholesterol 71 mg/dL (0-30) H 08/07/22 02:19 HDL Cholesterol 49 mg/dL (60-100) L 08/07/22 02:19 LDL/HDL Ratio Not Reportable 08/06/22 05:30 Cholesterol/HDL Ratio 6.82 mg/dL (1.0-5.00) H 08/07/22 02:19 Lipase 42 U/L (13-60) 08/06/22 00:40 Vitamin B12 455 pg/mL (232-1245) 08/06/22 15:40 Folate 10.3 ng/mL (4.5-32.2) 08/06/22 15:40 TSH 36.27 uIU/mL (0.27-4.20) H 08/06/22 05:30 Free T4 0.55 ng/dL (0.82-1.77) L 08/06/22 04:57 Free T3 1.7 PG/ML (2.0-4.4) L 08/06/22 04:57 Random Cortisol 28.36 ug/dL (2.47-19.5) H 08/06/22 18:53 Urine Color Yellow (Yellow) 08/06/22 22:30 Urine Appearance Clear (CLEAR) 08/06/22 22:30 Urine pH 9 (5-7) H 08/06/22 22:30 Ur Specific [place] 1.010 (1.005-1.030) 08/06/22 22:30 Urine Protein Neg (Negative) 08/06/22 22:30 Urine Glucose (UA) Norm (Normal) 08/06/22 22:30 Urine Ketones Negative (Negative) 08/06/22 22:30 Urine Blood Neg (Negative) 08/06/22 22:30 Urine Nitrate Negative (Negative) 08/06/22 22:30 Urine Bilirubin Neg (Negative) 08/06/22 22:30 Prot Sulfosalicylic Acd Negative (Negative) 08/06/22 22:30 Urine Urobilinogen Norm mg/dL (Negative) 08/06/22 22:30 Ur Leukocyte Esterase Negative (Negative) 08/06/22 22:30 A&P Assessment and plan (1) Unstable angina: Patient status post radical resection followed by PCI. High-grade lesion in the obtuse marginal artery. Lesions in the left anterior descending artery and the right coronary artery were found to be not significant. Further details, please refer to the angiogram report by Dr. Ackerman (2) Non-ST elevation TN (NSTEMI): May continue on the Brilinta, statin, and other current medications (3) Accelerated hypertension: Currently normotensive. May continue on the current medications (4) Dyslipidemia: Continue on the current medications. (5) Hypothyroidism (acquired): Continue on the current medications. (6) Pituitary macroadenoma: Management as per the endocrinology Plan If the patient continues to remain stable, may be discharged home from a cardiac standpoint sometime today. Follow-up with the [facility] in 1 week to be seen by the nurse practitioner I will see him in the office in 1 month This is a patient about the lifestyle modification. He seems understand this well. Attestations Medical Necessity Statement*: Disposition as per the primary Coding Level of Care Code Acute Desk Operator for Chg Fwd History Expanded Problem Focused Exam Expanded Problem Focused Medical Decision Making Moderate Complexity Diagnoses Unstable angina I20.0 Non-ST elevation TN (NSTEMI) I21.4 Accelerated hypertension I10 Dyslipidemia E78.5 Hypothyroidism (acquired) E03.9 Pituitary macroadenoma D35.2
--- NOTE | 2022-08-07 10:21 | P.DS_ITS ---
Discharge Providers Date of Admission: 08/06/22 02:37 Date of Discharge: August 07, 2022 Attending Provider at Admission: Deborah Amaya MD Attending Provider at Discharge: Fran Mauricio MD Consults: Cardiology: Dr. Ramirez Primary Care Provider: Shukri Palmer MD Diagnoses at Discharge Discharge Diagnosis (1) Unstable angina: Status: Acute (2) Non-ST elevation DC (NSTEMI): Status: Acute (3) Accelerated hypertension: Status: Acute (4) Dyslipidemia: Status: Acute (5) Hypothyroidism (acquired): Status: Acute (6) Pituitary macroadenoma: Status: Acute Reason for Visit Reason for Visit: Chest Pains Hospital Course Hospital Course Darin Mederos is a 52 year old male with a history of hypertension, dyslipidemia and CVA, is admitted to the hospital through the emergency room very present with complaints of chest pain for 2 days. Patient apparently has been in his baseline state of health up until last Friday when he started having chest pain while he was driving home.? The pain was mild intensity.? It might have lasted for a couple of hours and then gradually subsided.? On Friday morning, he started having chest pain again.? The pain was radiating down to both arms and also to the jaws.? Intensity of the pain was 5-6.? It has been waxing and waning throughout the day.? He tried some Rolaids and other antacids which may give him some relief.? Apparently went to bed with the pain.? He was not able to sleep through the night.? Friday he went to work with the pain.? At the workplace, the pain was waxing and waning.? With activities, the pain was getting worse.? As he came home, the pain started getting worse again.? Because of the worsening symptoms, he came to the emergency room last night.? He was given sublingual nitro which apparently dropped his blood pressure too low.? He responded to morphine.? His initial troponin T was in the 50s.? The troponin T's appear to be trending down.? He has been having mild chest pain off and on through the night.? This morning, he was started on IV nitro.? The blood pressure again started dropping.? For that reason, he was given morphine which almost relieved the pain completely.? At the time of my examination, patient is almost asymptomatic.? He may have a vague feeling in the chest but no real chest pain. Year ago, he was in the hospital with cute onset of some visual disturbances.? He also was found to have a macroadenoma of the pituitary gland.? Subsequently he was transferred to the [facility] in [place].? Details of this hospital admission is no known. No history for smoking abuse or alcohol abuse.? Paternal grandfather had a myocardial infarction in his 50s.? Heart murmurs in the family.? No other relevant family history. Patient with hospital further evaluation and management. Cardiology was consulted and he underwent cardiac angiogram and PCI on 08/06.(Full procedure note not available to me currently.) He tolerated the procedure well. Postprocedure patient had episodes of confusion for which CT head was done to rule out intracranial bleed. During hospitalization he was found to have uncontrolled hypertension, thyroid functions along with hypercholesterolemia. His dose of levothyroxine has been adjusted. He is advised to continue taking atorvastatin as before and ezetimibe has been added to his medication list. He is advised to monitor his blood pressure daily at home and maintain a blood pressure diary and follow-up with a primary care provider within next 1 week for further adjustment of antihypertensives as needed. Physical Exam Narrative: Awake and alert Morbidly obese S1, S2 Currently on room air Normal hemodynamics Awake and alert Pleasant and cooperative No signs of heart failure Abdomen soft No audible stridor or wheezing S1, S2 NIH 0 Pleasant cooperative Complaining of mild chest discomfort Discharge Data Studies Completed and Pending Completed Studies During Hospitalization Category Date Time Status CT head wo con* [id number] Routine Cat Scan 08/06/22 17:46 Completed XR chest 1V portable [id number] Stat Exams 08/06/22 00:00 Completed CV. 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 Head CT 08/06/22 17:46 IMPRESSION: No acute intracranial abnormality. Echocardiogram: ?CONCLUSIONS ?1. Normal left ventricular size, systolic function and wall ?thickness, with no regional wall motion abnormalities. Left ?ventricular ejection fraction is estimated at 70 %. Normal ?diastolic function. ?2. Normal right ventricular size and systolic function. ?3. No significant valvular abnormality. ?4. No change when compared to prior study dated 09/02/2021. ?Rohini Herrmann MD ?(Electronically Signed) ?Final Date:? ? ? 06 August 2022 ? 17:20 Laboratory Results WBC 12.9 10^3/uL (4.0-10.0) H 08/07/22 02:19 RBC 4.71 10^6/uL (4.1-5.3) 08/07/22 02:19 Hgb 15.4 g/dL (11.7-16.6) 08/07/22 02:19 Hct 43.7 % (42.0-52.0) 08/07/22 02:19 MCV 92.8 fl (80-94) 08/07/22 02:19 MCH 32.7 pg (28.0-34.0) 08/07/22 02:19 MCHC 35.2 g/dL (30.0-36.0) 08/07/22 02:19 RDW 13.5 % (12.1-15.1) 08/07/22 02:19 Plt Count 151 10^3/cmm (130-400) 08/07/22 02:19 MPV 11.9 fL (7.4-10.4) H 08/07/22 02:19 Neut % (Auto) 88.3 % 08/07/22 02:19 Lymph % (Auto) 6.3 % 08/07/22 02:19 [place] % (Auto) 4.7 % 08/07/22 02:19 Eos % (Auto) 0.0 % 08/07/22 02:19 Baso % (Auto) 0.2 % 08/07/22 02:19 Neut # (Auto) 11.33 10^3/uL (1.8-7.7) H 08/07/22 02:19 Lymph # (Auto) 0.8 10^3/uL (0.8-4.8) 08/07/22 02:19 [place] # (Auto) 0.6 10^3/uL (0.2-0.9) 08/07/22 02:19 Eos # (Auto) 0.0 10^3/uL (0.0-0.8) 08/07/22 02:19 Baso # (Auto) 0.0 10^3/uL (0.0-0.1) 08/07/22 02:19 Nucleated RBC % (auto) 0 % 08/07/22 02:19 Nucleated RBCs # 0.0 /100WBC 08/07/22 02:19 D-Dimer 0.37 ug/mIFEU (0-0.59) 08/06/22 00:40 Sodium 133 mmol/L (136-145) L 08/07/22 02:19 Potassium 3.9 mmol/L (3.5-5.1) 08/07/22 02:19 Chloride 97 mmol/L (98-107) L 08/07/22 02:19 Carbon Dioxide 23 mmol/L (22-29) 08/07/22 02:19 Anion Gap 16.9 (5-19) 08/07/22 02:19 BUN 14 mg/dL (6-20) 08/07/22 02:19 Creatinine 1.1 mg/dL (0.7-1.2) 08/07/22 02:19 GFR Calculation 70.6 mL/min (90-130) L 08/07/22 02:19 Glucose 129 mg/dL (65-115) H 08/07/22 02:19 POC Glucose 113 mg/dL (70-110) H 08/06/22 18:33 Estimat Average Glucose 91 08/07/22 02:19 Hemoglobin A1c 4.8 % (4.0-6.0) 08/07/22 02:19 Calculated Osmolality 278 mOsm/kg (285-295) L 08/07/22 02:19 Calcium 9.6 mg/dL (8.5-10.5) 08/07/22 02:19 Magnesium 2.0 mg/dL (1.7-2.3) 08/06/22 05:30 Iron 116 ug/dL (59-158) 08/06/22 15:40 TIBC 340 mcg/dl 08/06/22 15:40 % Saturation 34.1 % (20-50) 08/06/22 15:40 Unsat Iron Binding 224 ug/dL (112-347) 08/06/22 15:40 Total Bilirubin 0.5 mg/dL (0.15-1.2) 08/07/22 02:19 AST 39 U/L (0-40) 08/07/22 02:19 ALT 31 U/L (0-41) 08/07/22 02:19 Alkaline Phosphatase 96 U/L (40-130) 08/07/22 02:19 Ammonia 13 umol/L (16-60) L 08/06/22 18:53 Troponin T Baseline 57 ng/L (0-15) H 08/06/22 00:40 Troponin T 120 Minute 56.66 ng/L (0-15) H 08/06/22 02:19 Delta Troponin T -0.34 ABS# (0-10) L 08/06/22 02:19 Troponin T Hi Sens 6Hr 55.32 ng/L (0-15) H 08/06/22 05:30 Troponin T Hi Sens 6Hr Delta -1.68 ng/L (0-12) L 08/06/22 05:30 NT-Pro-B Natriuret Pep 85 pg/mL (0-125) 08/06/22 00:40 Total Protein 7.6 g/dL (6.6-8.7) 08/07/22 02:19 Albumin 4.8 g/dL (3.5-5.2) 08/07/22 02:19 Globulin 2.8 g/dL (1.3-4.6) 08/07/22 02:19 Triglycerides 355 mg/dL (0-150) H 08/07/22 02:19 Cholesterol 334 mg/dL (0-200) H 08/07/22 02:19 LDL Cholesterol Direct 223 mg/dL (0-100) H 08/06/22 05:30 LDL Cholesterol, Calc 214 mg/dL (50-129) H 08/07/22 02:19 Total VLDL Cholesterol 71 mg/dL (0-30) H 08/07/22 02:19 HDL Cholesterol 49 mg/dL (60-100) L 08/07/22 02:19 LDL/HDL Ratio Not Reportable 08/06/22 05:30 Cholesterol/HDL Ratio 6.82 mg/dL (1.0-5.00) H 08/07/22 02:19 Lipase 42 U/L (13-60) 08/06/22 00:40 Vitamin B12 455 pg/mL (232-1245) 08/06/22 15:40 Folate 10.3 ng/mL (4.5-32.2) 08/06/22 15:40 TSH 36.27 uIU/mL (0.27-4.20) H 08/06/22 05:30 Free T4 0.55 ng/dL (0.82-1.77) L 08/06/22 04:57 Free T3 1.7 PG/ML (2.0-4.4) L 08/06/22 04:57 Random Cortisol 28.36 ug/dL (2.47-19.5) H 08/06/22 18:53 Urine Color Yellow (Yellow) 08/06/22 22:30 Urine Appearance Clear (CLEAR) 08/06/22 22:30 Urine pH 9 (5-7) H 08/06/22 22:30 Ur Specific [place] 1.010 (1.005-1.030) 08/06/22 22:30 Urine Protein Neg (Negative) 08/06/22 22:30 Urine Glucose (UA) Norm (Normal) 08/06/22 22:30 Urine Ketones Negative (Negative) 08/06/22 22:30 Urine Blood Neg (Negative) 08/06/22 22:30 Urine Nitrate Negative (Negative) 08/06/22 22:30 Urine Bilirubin Neg (Negative) 08/06/22 22:30 Prot Sulfosalicylic Acd Negative (Negative) 08/06/22 22:30 Urine Urobilinogen Norm mg/dL (Negative) 08/06/22 22:30 Ur Leukocyte Esterase Negative (Negative) 08/06/22 22:30 Vitals Last Vital Signs Temp 99.0 F 08/06/22 22:34 Pulse 66 08/07/22 09:54 Resp 16 08/07/22 09:54 BP 122/75 08/07/22 09:00 Pulse Ox 92 08/07/22 09:54 O2 Del Method 08/07/22 09:54 Discharge Plan Discharge Patient Disposition: Home Condition: Stable Prescriptions: New aspirin 81 mg Tablet,Delayed Release (Dr/Ec) 81 mg PO DAILY Qty: 30 0RF atorvastatin 40 mg Tablet 80 mg PO BEDTIME Qty: 30 0RF levothyroxine 150 mcg Tablet 150 mcg PO DAILY Qty: 30 0RF ezetimibe 10 mg Tablet 10 mg PO DAILY Qty: 30 0RF pantoprazole 40 mg Tablet,Delayed Release (Dr/Ec) 40 mg PO DAILY Qty: 30 0RF Brilinta 90 mg Tablet 90 mg PO BID Qty: 60 0RF Continued escitalopram oxalate 20 mg Tablet 20 mg PO DAILY lisinopril 5 mg tablet 5 mg PO DAILY Qty: 30 3RF Discontinued atorvastatin 40 mg Tablet 80 mg PO BEDTIME Qty: 60 2RF aspirin 325 mg Tablet 325 mg PO DAILY levothyroxine 125 mcg Tablet 125 mcg PO DAILY Discharge Orders: Discharge Order (Routine); Ordered 08/07/22 Ordered By: Fran Mauricio Referrals: Shukri Palmer MD [Primary Care Provider] - 7-10 days Christos Ramirez MD [Physician] - 2 weeks Tamra Landaverde FNP [Nurse Practitioner] - 7-10 days Discharge Diet: Cardiac Discharge Activity: Resume usual activity and Increase activity as tolerated Patient Instructions: Opioid Safety Activity Restrictions/Additional Instructions: Please follow-up with your primary care provider within next 1 week, nurse practitioner from cardiology within next 1 week and with punch finisher within next 1 month. Dose of levothyroxine has been changed to 150 mcg daily. Continue with atorvastatin 80 mg daily. Take Brilinta 90 mg twice daily along with baby aspirin. Please check your blood pressure daily at home and maintain a blood pressure diary and follow-up with a primary care provider and the nurse practitioner for further adjustment of antihypertensives as needed. Please recheck thyroid profile within next 1 month. Discharge Attestations Time Spent in Discharge Care*: greater than 30 min Specific Discharge Activities: educating patient, educating and/or supporting family/caregiver, discussing with pcp/other providers, discussing with top case assembler/social workers/dc planners, documenting/other paperwork and evaluating patient/reviewing data Status at Discharge: Cognitive status at discharge: cognitively intact , Behavioral status at discharge: cooperative , Functional status at discharge: independent ambulation , Overall status at discharge: patient is back to baseline Quality Metrics Clinical Quality Measures [ Acute Myocardial Infaction { Clinical Trial Participant: No; Contraindication to aspirin: None; Aspirin prescribed; Contraindication to statin: None; Statin prescribed; Contraindication to PCI: None; PCI performed; Contraindication to Fibrinolytics: None; fibrinolytics given}] Coding Level of Care Code Acute Chg FW DC note Diagnoses Unstable angina I20.0 Non-ST elevation DC (NSTEMI) I21.4 Accelerated hypertension I10 Dyslipidemia E78.5 Hypothyroidism (acquired) E03.9 Pituitary macroadenoma D35.2
--- NOTE | 2022-08-07 11:34 | PC.CHAP ---
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 possible going home today Relational/Emotional Strength [] Patient feels connected with others/family/visitors/staff [] Distress [] Loneliness/isolation [] Abandonment Spirituality of Patient [] Person of [place] [] Attends U[place]din of their [place] [] Believes in Prayer [] Reads Bible or Sabianist materials [] There are Spiritual issues to be addressed Clin Tech Interventions [x] Prayer [] Active listening [] Non-anxious presence [] Spiritual/emotional support [] Crisis/trauma care [] Spiritual counseling [] Bereavement support [] Provided bereavement packet [] Provided Bible/devotional materials [] Provided toy/stuffed animal, coloring book to patient or family member [] Provided Communion [] Anointing/[place] [] Salvation [x] Completed spiritual assessment [] Other: Impact on Illness or Injury [] Angry [] Fearful [] Anxious [] Often cries [] Exhaustion [] Unable to work [] Unable to attend tenriism [] Unable to walk/stand [] Unable to read [] Unable to drive [] Unable to eat/drink [] Unable to sleep [] Unable to be with family [] Patient intubated [] Other: Summary Time spent with patient
--- NOTE | 2022-08-07 12:06 | PC.NURSE ---
Discharge instructions given to patient and , IVs removed, no further questions. Patient and belongings taken to private vehicle by this nurse accompanied by .
[2022-08-07] MEDS: haloperidol inj 5 mg/mL INJ 1 mL IM (12:18)
--- NOTE | 2022-08-13 11:24 | PC.SOCIAL ---
Ezetimibe CM received PA request for ezetmibe in patient's 's name. CM called to the pharmacy for this to be requested; was told that PA did not need to be completed as medication was filled and picked up on 08/08.
== END 2022-08-07 12:09 | disposition home or self-care (01) | DRG 247 ==
LOC: ER 08-06 02:04 → MEDSURG 08-06 02:39 → ICU 08-06 04:39
PROVIDERS: Internal Medicine; Nurse Practitioner Family; Admitting Provider Internal Medicine; Emergency Provider Emergency Medicine; PCP Family Medicine; Visit Provider Student in an Organized Health Care Education/Training Program
PROC: 027034Z Dilation of Coronary Artery, One Artery with Drug-eluting Intraluminal Device, Percutaneous Approach (ICD-10-PCS; principal; 2022-08-06 11:00)
PROC: 027034Z Dilation of Coronary Artery, One Artery with Drug-eluting Intraluminal Device, Percutaneous Approach (ICD-10-PCS; 2022-08-06 11:00)
DX: I21.4 Non-ST elevation (NSTEMI) myocardial infarction (principal); I20.0 Unstable angina; I16.0 Hypertensive urgency; E78.5 Hyperlipidemia, unspecified; E03.9 Hypothyroidism, unspecified; D35.2 Benign neoplasm of pituitary gland; Z86.73 Personal history of transient ischemic attack (TIA), and cerebral infarction without residual deficits; Z82.49 Family history of ischemic heart disease and other diseases of the circulatory system; E78.00 Pure hypercholesterolemia, unspecified; G47.30 Sleep apnea, unspecified; Z91.199 Patient's noncompliance with other medical treatment and regimen due to unspecified reason; E66.01 Morbid (severe) obesity due to excess calories; Z68.36 Body mass index [BMI] 36.0-36.9, adult
CPT/HCPCS: 36415; 36416; 70450; 71045; 80048; 80053; 80061; 81003; 82140; 82533; 82607; 82746; 82962; 83036; 83540; 83550; 83690; 83721; 83735; 83880; 84439; 84443; 84481; 84484; 85025; 85347; 85378; 92978; 92979; 93005; 93306; 93454; 96367; 96372; 96374; 99152; 99153; 99285; C1725; C1753; C1769; C1874; C1887; C1894; C9600; G0378; J0360; J1630; J1644; J1650; J2250; J2270; J2405; J3010; J3490; J7030; Q9967

== ENCOUNTER → 2022-08-15 10:35 | Outpatient (BNVA) | payer BC, SELFPAY | PROVIDERS: PCP Family Medicine; Visit Provider Nurse Practitioner Family | DX: I21.4 Non-ST elevation (NSTEMI) myocardial infarction (principal); Z95.5 Presence of coronary angioplasty implant and graft; I25.10 Atherosclerotic heart disease of native coronary artery without angina pectoris | CPT/HCPCS: 36415; 80048 ==

== ENCOUNTER → 2022-10-29 11:48 | Outpatient (BNVA) | payer BC, SELFPAY | PROVIDERS: PCP Family Medicine; Visit Provider Internal Medicine Cardiovascular Disease | DX: R06.02 Shortness of breath (principal); I25.10 Atherosclerotic heart disease of native coronary artery without angina pectoris; G47.33 Obstructive sleep apnea (adult) (pediatric); I10 Essential (primary) hypertension; E03.9 Hypothyroidism, unspecified; E78.5 Hyperlipidemia, unspecified | CPT/HCPCS: 36415; 80048; 83880 ==

== ENCOUNTER → 2023-05-30 10:45 | Outpatient (BNVA) | payer BC, SELFPAY | PROVIDERS: PCP Family Medicine; Visit Provider Nurse Practitioner Family | DX: I25.10 Atherosclerotic heart disease of native coronary artery without angina pectoris (principal); I10 Essential (primary) hypertension | CPT/HCPCS: 36415; 80061; 86618; 86666; 86757 ==

== ENCOUNTER 2024-03-25 14:24 | Outpatient (CLI) | payer BC, SELFPAY ==
--- NOTE | 2024-03-25 14:30 | XR_ITS ---
WS: [id number] Chest 2 views, 03/25/2024 Clinical Data: [id number] Comparison: Portable chest, 08/06/2022 Findings: No nodules, masses or effusions are seen. The heart is normal. The pulmonary vascularity is not increased. No pneumonia or pneumothorax is seen. There is a healed fracture of the midshaft of t he right clavicle. XR/XR chest 2V* [id number] Impression: Negative chest.
== END 2024-03-25 14:25 | disposition home or self-care (01) ==
LOC: RADOUTREAD 14:26
PROVIDERS: PCP Family Medicine; Visit Provider Family Medicine
DX: R06.00 Dyspnea, unspecified (principal)